=== PATIENT | male | born 1950 | race Caucasian/White ===

== ENCOUNTER → 2019-07-16 05:43 | Outpatient (CLI) | payer OTHER, SELFPAY ==
--- NOTE | 2019-07-16 06:39 | MRI_ITS ---
STUDY: MRI LEFT KNEE REASON FOR EXAM: Anterior pain status post fall, prior surgery. TECHNIQUE: Standardized fat and water weighted pulse sequences were obtained in all 3 orthogonal planes. COMPARISON: None. FINDINGS: There is a partial medial meniscectomy. There is a small complex signal alteration of the posterior horn remnant of the medial meniscus (proton density sagittal images 16-18), either scarring or small recurrent medial meniscal tear. There is arthrosis of the medial femorotibial compartment with marginal osteophytes, chondral thinning (T2 coronal image 15) and a subchondral lesion of the medial femoral condyle (proton density coronal image 18). There is very mild subchondral bone edema of the medial tibial plateau (T2 coronal image 16), a stress phenomenon. Normal medial collateral ligamentous complex (MCL). Normal distal semimembranosus, gracilis and semitendinosus tendons. Normal lateral meniscus. Normal hyaline cartilage of the lateral femorotibial compartment. There are small marginal osteophytes of the lateral femoral condyle. Normal lateral femoral condyle and tibial plateau. Normal proximal tibiofibular articulation. Normal lateral collateral (fibular) ligament. Normal popliteus tendon. Normal biceps femoris tendon. There is intrasubstance mucoid degeneration of the anterior cruciate ligament (T2 sagittal image 15). Normal posterior cruciate ligament (PCL). Normal congruent patellofemoral articulation. There is arthrosis of the patellofemoral compartment with marginal osteophytes and chondral thinning (T2 axial image 10). Normal medial and lateral patellar retinaculum. There is mild distal quadriceps tendinosis (T2 sagittal image 19). There is mild distal patellar tendinosis (T2 sagittal image 19). Normal Hoffa's fat pad. There is a small joint effusion. There is edema in the subcutis adipose space, greatest anteriorly. The otherwise visualized osseous structures are unremarkable. MRI/Lower Ext Joint Only (Routine) IMPRESSION: Partial medial meniscectomy with small signal alteration of the posterior horn remnant of the medial meniscus, either scarring or small recurrent medial meniscal tear. Arthrosis of the medial femorotibial and patellofemoral compartments. Very mild subchondral bone edema of the medial tibial plateau, a stress phenomenon. Mild quadriceps and patellar tendinosis. Small joint effusion. Edema in the subcutis adipose space. Electronically Signed: Bladimir Beebe MD at 13:20 EDT Tel , Service support ,
== END ==
PROVIDERS: Family Provider Internal Medicine; PCP Internal Medicine; Referring Provider Emergency Medicine; Visit Provider Emergency Medicine
DX: S80.02XA Contusion of left knee, initial encounter (principal)
CPT/HCPCS: 73721

== ENCOUNTER 2020-07-12 20:35 | Emergency (ER) | payer MEDICARE, SELFPAY ==
[2020-07-12 20:37] VITALS: BP 147/74; PULSE 99; RESP 15; TEMP 37.6; O2SAT 97; BMI 44.1
--- NOTE | 2020-07-12 22:29 | EKG12_ITS ---
Test Reason : SOB Blood Pressure : / mmHG Vent. Rate : 088 BPM Atrial Rate : 088 BPM P-R Int : 178 ms QRS Dur : 144 ms QT Int : 398 ms P-R-T Axes : 046 019 020 degrees QTc Int : 481 ms Normal sinus rhythm Right bundle branch block Abnormal ECG Confirmed by ARELY JOHNSON, REBECCA ([id number]), publication editor MARIA RYAN ([id number]) on 07/13/2020 9:06:09 AM Referred By: [facility] Confirmed By:REBECCA MCGEE MD
[2020-07-12 22:56] VITALS: BP 140/72; PULSE 87; RESP 18; O2SAT 95
[2020-07-12 22:59] LABS: Absolute Lymphocyte Count 1.18 X10^3/uL (0.83-4.51); Absolute Neutrophil Count 5.9 X10^3/uL (2.0-7.7); Basophil# 0.05 X10^3/uL; Basophil% 0.6 % (0-1); Eosinophil# 0.16 X10^3/uL; Hematocrit 36.2 % (40-54); Hemoglobin 11.2 g/dL (13.0-16.5); Lymphocyte # 1.18 X10^3/ul (4.0); Mean Corp Hgb Conc 30.9 g/dL (32-36); Mean Corpuscular Hgb 25.3 pg (27.0-32.0); Mean Corpuscular Volume 81.9 fL (80-94); Mean Platelet Vol. 9.5 fl (6.2-12.0); Monocyte# 0.57 X10^3/uL; Monocyte% 7.2 % (0-10); NRBC Flagged by Analyzer 0 % (0-5); Neutrophil # 5.88 X10^3/uL (2.7-7.7); Neutrophil % 74.8 % (47-70); Platelet Count 234 K/mm3 (150-450); RBC Distribution Width CV 15.2 % (11.6-14.6); RBC Distribution Width SD 45.6 fl (35.1-43.9); Red Blood Count 4.42 M/mm3 (4.6-6.2); White Blood Count 7.9 K/mm3 (4.4-11.0)
[2020-07-12] MEDS: guaiFENesin 1,200 MG Tablet 1200 MG PO (23:02)
--- NOTE | 2020-07-12 23:15 | RAD_ITS ---
STUDY: X-RAY CHEST REASON FOR EXAM: Male, 69 years old. COUGH AND SOB X 1 DAY TECHNIQUE: Single AP portable view of the chest. COMPARISON: None. FINDINGS: The lungs are clear and expanded. There is no demonstrated pleural abnormality. Normal size heart. Normal mediastinum and leonel. Normal visualized pulmonary arteries. Normal visualized aortic arch and descending thoracic aorta. There are diffuse degenerative changes of the visualized thoracic spine. Normal visualized ribs, clavicles, and shoulders. There is no demonstrated abnormality of the visualized soft tissue structures of the upper abdomen. RAD/Chest 1 View (Portable) IMPRESSION: No definite acute or significant abnormality seen. Electronically Signed: Thomas Chase MD at 23:35 EDT , Service support ,
[2020-07-12 23:34] LABS: Anion Gap 8 (5-15); BUN 11 mg/dL (7-18); BUN/Creat Ratio 7.6 RATIO (10-20); Calcium,Total 9.3 mg/dL (8.5-10.1); Chloride 101 mmol/L (98-107); Creatinine, Serum 1.44 mg/dL (0.70-1.30); EST Glomerular Filtration Rate 52 mL/min (>60); Est Glom Filt Rate - Afr Amer 63 mL/min (>60); Estimated Creatinine Clearance 46.54 ml/min; Glucose 124 mg/dL (74-106); Potassium 3.2 mmol/L (3.5-5.1); Sodium Level 140 mmol/L (136-145)
--- NOTE | 2020-07-13 00:03 | ED.DCSUM_ITS ---
History of Present Illness Chief Complaint: Cough Informant: Patient Onset: Today Current Severity: Mild Maximum Severity: Mild Narrative: Patient presents with right ear pain that started yesterday along with head congestion. Today it moved down into his chest with cough and mild headache. He reports no fever at home but temperature was documented 99.7 here. He states he feels like he has a lot of thick sputum in his chest and is having trouble getting it up and out. - Past Medical History (1) Hypertension Status: Chronic (2) High cholesterol Status: Chronic (3) Diabetes Status: Chronic Past Medical History - Allergies and Home Meds Allergies/Adverse Reactions: Allergies anesthetic Allergy (Uncoded 07/12/20 20:36) Rash Primary Care Physician: Reese Aburto MD [Primary Care Provider] - Prior records reviewed: Yes Lives: Spouse/ Significant Other Smoking Status: Former smoker Review of Systems General: Denies: Chills, Fever Eyes: Denies: Visual changes - bilaterally ENT: Reports: Right ear pain, Sore throat. Denies: Bilateral ear pain Cardiovascular: Reports: Chest pain - Chest heaviness Respiratory: Reports: Cough, Sputum - Rare sputum. Denies: Dyspnea Gastrointestinal: Denies: Abdominal pain, Nausea, Vomiting, Diarrhea Genitourinary: Denies: Dysuria Musculoskeletal: Denies: Extremity Pain Skin: Denies: Rash Neurological: Reports: Headache Hematologic: Denies: Easy bruising, Easy bleeding Allergy: Denies: Uticaria Physical Exam Vital Signs/Narrative: Vital Signs Temp Pulse Resp BP Pulse Ox 07/12/20 22:56 87 18 140/72 H 95 07/12/20 20:37 99.7 F H 99 15 147/74 H 97 Inital Vital Signs reviewed: Yes General: Well nourished, Well developed Head: Normocephalic Eyes: Perrl, EOMI ENT: Moist mucous membranes Neck: Supple Cardiovascular: Regular rate, Regular rhythm Respiratory: No distress, CTA bilaterally Abdomen: Soft, Nontender, Normal bowel sounds Extremities: Nontender, - - 1-2+ edema bilateral lower extremities, symmetric Skin: Normal color Neurological: Alert, Oriented x3, Normal Strength, Normal Sensation Psychological: Normal affect Diagnostic/Tx/Re-eval Impressions Chest X-Ray 07/12/20 23:15 IMPRESSION: No definite acute or significant abnormality seen. Electronically Signed: Thomas Chase MD at 23:35 EDT , Service support , 07/12/20 23:15 Chest 1 View (Portable) [RAD] Stat Laboratory Results 07/12/20 07/12/20 22:05 22:05 WBC 7.9 RBC 4.42 L Hgb 11.2 L Hct 36.2 L MCV 81.9 MCH 25.3 L MCHC 30.9 L RDW Std Deviation 45.6 H RDW Coeff of Viktoria 15.2 H Plt Count 234 MPV 9.5 Immature Gran % (Auto) 0.400 Neut % (Auto) 74.8 H Lymph % (Auto) 15.0 L Day % (Auto) 7.2 Eos % (Auto) 2.0 Baso % (Auto) 0.6 Absolute Neuts (auto) 5.9 Absolute Lymphs (auto) 1.18 Nucleated RBC % 0 Sodium 140 Potassium 3.2 L Chloride 101 Carbon Dioxide 31.0 Anion Gap 8 BUN 11 Creatinine 1.44 H Estim Creat Clear Calc 46.54 Est GFR (MDRD) Af Amer 63 Est GFR (MDRD) Non-Af 52 L BUN/Creatinine Ratio 7.6 L Glucose 124 H Calcium 9.3 Troponin I < 0.015 - EKG Initial EKG Interpretation: Sinus Rhythm - Sinus 88 with a right bundle branch block. No acute ischemia. - Medical Decision Making Patient is observed on awake overnight monitor here with no arrhythmias noted. He is hemodynamically stable. He was given a dose of Mucinex here. On repeat evaluation he is resting comfortably. He states he was able to get some sputum up with his cough. He will be given prescription for Mucinex. I advised him I believe his symptoms are all viral in nature and antibiotics would not be of benefit. Covid test was sent and will be available in 3 to 5 days. ED Disposition - Plan for ED Patient: Disposition: Home or Assisted Living Diagnosis: Viral syndrome Instructions: ED Viral Syndrome Prescriptions: Guaifenesin [Mucinex] 600 mg PO BID PRN #10 tab.er.12h PRN Reason: Congestion Transmission Status: Pending to [id number] Referrals: Reese Aburto MD [Primary Care Provider] - 1 Week if not improving
[2020-07-13 00:37] VITALS: BP 133/67
[2020-07-13 00:41] VITALS: BP 133/67; PULSE 77; RESP 16
== END 2020-07-13 00:41 | disposition home or self-care (01) ==
PROVIDERS: Emergency Provider Emergency Medicine; PCP Internal Medicine
DX: B34.9 Viral infection, unspecified (principal); R05 Cough; J02.9 Acute pharyngitis, unspecified; H92.01 Otalgia, right ear; R51.9 Headache, unspecified; I45.10 Unspecified right bundle-branch block; I10 Essential (primary) hypertension; E11.9 Type 2 diabetes mellitus without complications; E78.00 Pure hypercholesterolemia, unspecified; Z79.84 Long term (current) use of oral hypoglycemic drugs; Z79.899 Other long term (current) drug therapy
CPT/HCPCS: 71045; 80048; 84484; 85025; 87635; 93005; 99285; A4216; U0003

== ENCOUNTER 2020-08-01 16:28 | Emergency (ER) | payer MEDICARE, SELFPAY ==
[2020-08-01 16:29] VITALS: BP 156/25; PULSE 91; RESP 16; TEMP 36.7; O2SAT 97; BMI 45.1
[2020-08-01 16:30] VITALS: BP 156/25; PULSE 91; RESP 16; TEMP 36.7; TEMP 37; O2SAT 97
--- NOTE | 2020-08-01 16:43 | ED.DCSUM_ITS ---
History of Present Illness Informant: Patient Onset: Yesterday Context: Gradual Onset Timing: Continuous Quality: Sharp Location: left leg Current Severity: Severe Maximum Severity: Severe Worsened by: Movement and walking Relieved by: Rest Associated Symptoms: Fever Narrative: 69-year-old male history of hypertension hyperlipidemia type 2 diabetes mellitus presents to ED with pain and swelling in his left leg. Noticed it yesterday. He is concerned for cellulitis. He denies a history of cellulitis. He had a fever 101.7 ?F orally last evening. No nausea or vomiting. No trauma. No weakness or paresthesias. No recent travel or surgery. No history of DVT or PE. No chest pain shortness of breath hemoptysis. No abdominal pain. Prior similar symptoms: No Recent Illness/Hospitalization: No <Tavo Loja - Last Filed: 08/01/20 17:49> <Toan العراقي - Last Filed: 08/01/20 18:13> Chief Complaint: Lower Extremity Injury Past Medical History Prior records reviewed: Yes Past Medical History: - - Hypertension hyperlipidemia depression colonic polyps spinal stenosis morbid obesity BPH anxiety GERD chronic kidney disease gout type 2 diabetes Surgical History: arthroscopy, knee Lives: With Family Smoking Status: Former smoker Alcohol: Occasional Drugs: None <Tavo Loja - Last Filed: 08/01/20 17:49> <Toan العراقي - Last Filed: 08/01/20 18:13> - Allergies and Home Meds Allergies/Adverse Reactions: Allergies anesthetic Allergy (Uncoded 08/01/20 16:31) Rash Primary Care Physician: Reese Aburto MD [Primary Care Provider] - 2 Days Review of Systems All systems negative except as indicated General: Denies: Chills, Fever, Sweats Eyes: Denies: Visual changes - bilaterally, Diplopia ENT: Denies: Rhinorrhea, Sore throat Cardiovascular: Denies: Chest pain, Palpitations Respiratory: Denies: Dyspnea, Cough, Dyspnea on exertion Gastrointestinal: Denies: Abdominal pain, Nausea, Vomiting, Diarrhea, Melena, Hematochezia Genitourinary: Denies: Dysuria, Hematuria, Frequency Musculoskeletal: Reports: Swelling, Extremity Pain. Denies: Back pain Skin: Reports: Wounds. Denies: Rash, Abscess, Abrasions Neurological: Denies: Headache, Weakness, Numbness <Tavo Loja - Last Filed: 08/01/20 17:49> Physical Exam Vital Signs/Narrative: Vital Signs Temp Pulse Resp BP Pulse Ox 08/01/20 16:29 98.0 F 91 16 156/25 H 97 Inital Vital Signs reviewed: Yes General: Well nourished, Well developed, No Acute Distress Head: Normocephalic, Atraumatic Eyes: Perrl, EOMI ENT: Moist mucous membranes, No rhinorrhea Neck: Supple, Nontender Cardiovascular: Regular rate, Regular rhythm, No murmurs Respiratory: No distress, CTA bilaterally, Chest nontender Abdomen: Soft, Nontender, Nondistended, Normal bowel sounds Back: Nontender, Normal Inspection Extremities: - - Patient has cellulitis of his left leg the distal half of his leg that stops at the ankle circumferential. It is tender on palpation red warm to touch and swollen. No lymphatic streaking proximal to that or distal to that area. Normal DP and PT pulse. Compartments soft. Normal AROM Skin: Normal color, No rash Neurological: Alert, Oriented x3, Cranial nerves II-XII grossly intact, Normal Strength, Normal Sensation Psychological: Normal affect, Normal Mood <Tavo Loja - Last Filed: 08/01/20 17:49> Vital Signs/Narrative: Vital Signs Temp Pulse Resp BP Pulse Ox 08/01/20 17:30 98.6 F 91 16 156/25 H 97 08/01/20 16:30 98.6 F 91 16 156/25 H 97 08/01/20 16:29 98.0 F 91 16 156/25 H 97 <Toan العراقي - Last Filed: 08/01/20 18:13> Diagnostic/Tx/Re-eval Laboratory Results 08/01/20 08/01/20 08/01/20 17:05 17:05 17:05 WBC 6.6 RBC 4.09 L Hgb 10.5 L Hct 33.7 L MCV 82.4 MCH 25.7 L MCHC 31.2 L RDW Std Deviation 46.0 H RDW Coeff of Viktoria 15.4 H Plt Count 222 MPV 9.7 Immature Gran % (Auto) 0.200 Neut % (Auto) 67.4 Lymph % (Auto) 22.7 Piatt % (Auto) 7.1 Eos % (Auto) 2.0 Baso % (Auto) 0.6 Absolute Neuts (auto) 4.5 Absolute Lymphs (auto) 1.50 Nucleated RBC % 0 PT 14.2 INR 1.2 Sodium 138 Potassium 3.8 Chloride 103 Carbon Dioxide 29.0 Anion Gap 6 BUN 15 Creatinine 1.55 H Estim Creat Clear Calc 41.73 Est GFR (MDRD) Af Amer 58 L Est GFR (MDRD) Non-Af 48 L BUN/Creatinine Ratio 9.7 L Glucose 180 H Calcium 8.9 Total Bilirubin 0.60 AST 33 ALT 37 Alkaline Phosphatase 87 Total Protein 7.2 Albumin 3.5 Globulin 3.7 Albumin/Globulin Ratio 0.9 - Medical Decision Making Patient has normal stable vital signs. Laboratory work-up was pursued is unremarkable. The patient has no signs of sepsis. He was afebrile here without taking any fever reducing medications. He has not yet failed antibiotic therapy as an outpatient. We will start him on both Bactrim and Keflex. He was given first doses in the emergency department. Patient will be discharged with prescriptions for both Bactrim and Keflex he was advised to have a 48-hour wound check at his primary care physician Dr. Aburto and I gave him return precautions and discussed supportive care as well. All questions answered. He is agreeable with plan. He will be discharged home. <Tavo Loja - Last Filed: 08/01/20 17:49> - Medical Decision Making Dependent history physical was obtained. Patient states when he awoke this morning noted the redness anterior medial distal left leg. He denies itching. He does have history of psoriasis. He denies fever, chills night sweats. He denies polyuria polydipsia. He does have history of diabetes. He denies allergies to antibiotics. He states he had cellulitis in the past. Vital signs noted. Patient has mild cellulitis distal left leg. There is no lymphangitis or lymphadenopathy. There is no fluctuance. Distal pulses are palpable. Blood work was obtained. Patient lactate is elevated due to diabetes, he is on Metformin. White count is normal. Patient was treated with cephalexin and Bactrim for strep and staph coverage for cellulitis left leg. <Toan العراقي - Last Filed: 08/01/20 18:13> ED Disposition <Tavo Loja - Last Filed: 08/01/20 17:49> <Toan العراقي - Last Filed: 08/01/20 18:13> - Plan for ED Patient: Disposition: Home or Assisted Living Diagnosis: Cellulitis of leg without foot, left, Diabetes, High cholesterol, Hypertension, CKD (chronic kidney disease) stage 3, GFR 30-59 ml/min, Hyperglycemia due to type 2 diabetes mellitus, Lactic acidosis due to diabetes mellitus Instructions: ED Cellulitis Prescriptions: Smz/Tmp Ds [Bactrim Ds] 1 tab PO BID #14 tab Transmission Status: Received by [facility] Cephalexin [Keflex] 500 mg PO Q6 #40 cap Transmission Status: Received by [facility] Referrals: Reese Aburto MD [Primary Care Provider] - 2 Days
[2020-08-01 17:30] VITALS: BP 156/25; PULSE 91; RESP 16; TEMP 37; O2SAT 97
[2020-08-01 17:31] LABS: Absolute Neutrophil Count 4.5 X10^3/uL (2.0-7.7); Basophil# 0.04 X10^3/uL; Basophil% 0.6 % (0-1); Eosinophil# 0.13 X10^3/uL; Hematocrit 33.7 % (40-54); Hemoglobin 10.5 g/dL (13.0-16.5); Lymphocyte % 22.7 % (19-41); Mean Corp Hgb Conc 31.2 g/dL (32-36); Mean Corpuscular Hgb 25.7 pg (27.0-32.0); Mean Corpuscular Volume 82.4 fL (80-94); Mean Platelet Vol. 9.7 fl (6.2-12.0); Monocyte# 0.47 X10^3/uL; Monocyte% 7.1 % (0-10); NRBC Flagged by Analyzer 0 % (0-5); Neutrophil # 4.47 X10^3/uL (2.7-7.7); Neutrophil % 67.4 % (47-70); Platelet Count 222 K/mm3 (150-450); RBC Distribution Width CV 15.4 % (11.6-14.6); Red Blood Count 4.09 M/mm3 (4.6-6.2); White Blood Count 6.6 K/mm3 (4.4-11.0)
[2020-08-01 17:35] LABS: International Normalized Ratio 1.2; Prothrombin Time (Protime)PT. 14.2 SECONDS (11.7-14.9)
[2020-08-01 17:43] LABS: ALB/GLOB Ratio 0.9 RATIO (0.9-2.4); AST(SGOT) 33 U/L (15-37); Alanine Aminotransfer ALT/SGPT 37 U/L (16-61); Albumin, Serum 3.5 g/dL (3.2-5.0); Alkaline Phosphatase 87 U/L (45-117); Anion Gap 6 (5-15); BUN 15 mg/dL (7-18); BUN/Creat Ratio 9.7 RATIO (10-20); Calcium,Total 8.9 mg/dL (8.5-10.1); Chloride 103 mmol/L (98-107); Creatinine, Serum 1.55 mg/dL (0.70-1.30); EST Glomerular Filtration Rate 48 mL/min (>60); Est Glom Filt Rate - Afr Amer 58 mL/min (>60); Estimated Creatinine Clearance 41.73 ml/min; Globulin 3.7 g/dL (2.2-4.2); Glucose 180 mg/dL (74-106); Potassium 3.8 mmol/L (3.5-5.1); Protein, Total 7.2 g/dL (6.4-8.2); Sodium Level 138 mmol/L (136-145)
[2020-08-01 17:58] LABS: Lactic Acid 2.1 mmol/L (0.4-1.9)
[2020-08-01] MEDS: Cephalexin 250 MG Capsule 500 MG PO (18:23)
[2020-08-01] MEDS: Smz/Tmp Ds Tablet 1 TABLET PO (18:23)
[2020-08-01 21:16] LABS: Reflex Lactate? Y
== END 2020-08-01 18:27 | disposition home or self-care (01) ==
PROVIDERS: Emergency Provider Physician Assistant Medical; PCP Internal Medicine
DX: E11.628 Type 2 diabetes mellitus with other skin complications (principal); L03.116 Cellulitis of left lower limb; E11.22 Type 2 diabetes mellitus with diabetic chronic kidney disease; I12.9 Hypertensive chronic kidney disease with stage 1 through stage 4 chronic kidney disease, or unspecified chronic kidney disease; N18.30 Chronic kidney disease, stage 3 unspecified; E11.65 Type 2 diabetes mellitus with hyperglycemia; E78.00 Pure hypercholesterolemia, unspecified; E87.2 Acidosis; E78.5 Hyperlipidemia, unspecified; F32.9 Major depressive disorder, single episode, unspecified; M48.00 Spinal stenosis, site unspecified; E66.01 Morbid (severe) obesity due to excess calories; N40.0 Benign prostatic hyperplasia without lower urinary tract symptoms; K21.9 Gastro-esophageal reflux disease without esophagitis; F41.9 Anxiety disorder, unspecified; Z86.010 Personal history of colon polyps; Z79.84 Long term (current) use of oral hypoglycemic drugs; Z79.899 Other long term (current) drug therapy; Z87.891 Personal history of nicotine dependence
CPT/HCPCS: 80053; 83605; 85025; 85610; 99284; A4216

== ENCOUNTER 2021-04-04 15:26 | Emergency (ER) | payer MEDICARE, SELFPAY ==
[2021-04-04 15:27] VITALS: BP 146/69; PULSE 98; RESP 14; TEMP 36.4; O2SAT 97; BMI 41.3
--- NOTE | 2021-04-04 16:26 | EDS_ITS ---
HPI History of Present Illness Chief Complaint: Lower Extremity Injury Informant: patient Onset/Context/Timing Onset: Days (3) Context: Sudden Onset Timing: Continuous Quality: Cramping Location: Left thigh and left knee Worsened by: Sitting, certain movements Relieved by: Nothing Narrative Narrative: Patient presents with left thigh and knee pain that began 3 days ago. Patient states he slipped and fell and did a split. Patient states he felt pain in his left hamstring and left knee at that time. Patient states the pain is been constant. Patient describes his pain as cramping. Patient states pain is worse with sitting and certain movements. Patient admits to some intermittent tingling in his left foot. Patient states he had a left total knee replacement and is concerned that he has damaged the prosthesis. [facility] Medical History High cholesterol HTN (hypertension) Home Medications amlodipine 10 mg PO DAILY 07/12/20 [History Last Taken Unknown] atorvastatin 40 mg PO DAILY 07/12/20 [History Last Taken Unknown] doxazosin 4 mg PO QHS 07/12/20 [History Last Taken Unknown] lisinopril-hydrochlorothiazide 2 ea PO DAILY 07/12/20 [History Last Taken Unknown] metformin 500 mg PO DAILY 07/12/20 [History Last Taken Unknown] omeprazole 20 mg PO DAILY 07/12/20 [History Last Taken Unknown] guaifenesin 600 mg PO BID PRN #10 tab.er.12h 07/13/20 [Rx Last Taken Unknown] cephalexin 500 mg PO Q6 #40 cap 08/01/20 [Rx Last Taken Unknown] sulfamethoxazole-trimethoprim 1 tab PO BID #14 tab 08/01/20 [Rx Last Taken Unknown] Allergy/AdvReac Type Severity Reaction Status Date / Time anesthetic Allergy Rash Uncoded 04/04/21 15:27 Surgical History H/O left knee surgery Social History Smoking Status: Never smoker ROS ROS ED Constitutional Constitutional ED: Denies chills or fever(s) Eyes Eyes: Denies blurry vision or change in vision ENT ENT ED: Denies rhinorrhea or sore throat Cardiovascular Cardiovascular: Denies chest pain or palpitations Respiratory/Chest Respiratory/Chest: Denies cough or dyspnea Gastrointestinal Gastrointestinal: Denies nausea or vomiting Genitourinary Genitourinary ED: Denies dysuria or hematuria Musculoskeletal Musculoskeletal: Reports back pain; Denies neck pain Integumentary Denies abscess or rash Neurologic Neurologic: Denies headache(s) or weakness Allergic/Immunologic Allergic/Immunologic ED: Denies mouth swelling or urticaria EXAM Physical Exam Const Vital Signs: 04/04/21 15:27 Temperature 97.6 F L Temperature Source Temporal Pulse Rate 98 Respiratory Rate 14 Blood Pressure 146/69 H Blood Pressure Mean 94 Pulse Ox 97 Oxygen Delivery Method Room Air Positive well nourished, well developed and obese General Appearance ED: well developed Nutritional Appearance: obese HEENT Reports moist mucous membranes Neck supple and no JVD Extremity Extremity Narrative: There is some mild tenderness over the superior aspect of the left knee. There is no bony crepitance or step-off. There is no edema or ecchymosis. Range of motion was limited to approximately 30 degrees of flexion secondary to pain. Extensor mechanism is intact. There is no effusion. There is mild tenderness posteriorly. There is tenderness over the posterior aspect of the left thigh along the hamstring muscles. There is no deformity noted. Sensation was intact to light touch bilaterally in the lower extremities. Strength is 5/5 bilaterally. There are good pedal pulses bilaterally. Neuro oriented x3, CN's II-XII intact bilaterally and no sensory deficits noted Sensorium / Orientation: alert Motor Exam: strength 5/5 throughout Psych mental status grossly normal MDM MDM MDM Narrative Medical decision making narrative: X-rays of the left knee were obtained. There are 4 views. On my interpretation, there is no acute fracture. There is no dislocation. There is some mild soft tissue swelling. Radiologist also interpreted the x-rays and agrees. Patient was advised that the knee prosthesis is intact. Patient was instructed to use ice to his knee and thigh. Patient was instructed to take Tylenol or ibuprofen as needed for pain. Patient was instructed to follow-up with his primary care physician in 5 to 7 days. Patient understood and was agreeable with the plan. All questions were answered. Radiography Diagnostic Testing: Radiology Impression Knee X-Ray 04/04/21 16:38 IMPRESSION: Stable appearance to knee prosthesis without evidence for acute fracture Electronically Signed: Zi Doan MD at 17:07 EDT , Service support , Discharge Plan Triage Chief Complaint: Lower Extremity Injury ED Provider: Ralph Ozuna Dx/Rx/DC Orders Clinical Impression: Strain of left hamstring muscle Instructions: ED Muscle Strain, Extremity Prescriptions: No Action atorvastatin 40 MG tablet 40 mg PO DAILY RF: 0 amlodipine 10 MG tablet 10 mg PO DAILY RF: 0 omeprazole 20 MG capsule 20 mg PO DAILY RF: 0 doxazosin 4 MG tablet 4 mg PO QHS RF: 0 metformin 500 MG tablet 500 mg PO DAILY RF: 0 lisinopril-hydrochlorothiazide 1 EACH tablet 2 ea PO DAILY RF: 0 guaifenesin 600 MG tablet extended release 12hr 600 mg PO BID PRN (Reason: Congestion) Qty: 10 RF: 0 sulfamethoxazole-trimethoprim 1 TABLET tablet 1 tab PO BID Qty: 14 RF: 0 cephalexin 500 MG capsule 500 mg PO Q6 Qty: 40 RF: 0 Primary Care Provider: Reese Aburto Referrals: Reese Aburto MD [Primary Care Provider] - 5-7 Days Disposition Disposition: Home, Self Care
--- NOTE | 2021-04-04 16:38 | RAD_ITS ---
STUDY: X-RAY - LEFT KNEE REASON FOR EXAM: Male, 70 years old. Injury/Pain TECHNIQUE: 4 view(s) of the knee. COMPARISON: None. FINDINGS: Stable appearance to knee prosthesis. No acute fracture or dislocation. Mild prepatellar soft tissue swelling. RAD/Knee 4 or More Views IMPRESSION: Stable appearance to knee prosthesis without evidence for acute fracture Electronically Signed: Zi Doan MD at 17:07 EDT , Service support ,
[2021-04-04 17:34] VITALS: RESP 16
== END 2021-04-04 17:39 | disposition home or self-care (01) ==
PROVIDERS: Emergency Provider Emergency Medicine; PCP Internal Medicine
DX: S76.312A Strain of muscle, fascia and tendon of the posterior muscle group at thigh level, left thigh, initial encounter (principal); R20.2 Paresthesia of skin; W01.0XXA Fall on same level from slipping, tripping and stumbling without subsequent striking against object, initial encounter; Y93.9 Activity, unspecified; Y92.9 Unspecified place or not applicable; E66.9 Obesity, unspecified; Z68.41 Body mass index [BMI] 40.0-44.9, adult; I10 Essential (primary) hypertension; E78.00 Pure hypercholesterolemia, unspecified; Z96.652 Presence of left artificial knee joint; Z79.84 Long term (current) use of oral hypoglycemic drugs; Z79.899 Other long term (current) drug therapy
CPT/HCPCS: 73564; 99282

== ENCOUNTER 2022-03-15 16:34 | Emergency (ER) | payer MEDICARE, SELFPAY ==
[2022-03-15 16:36] VITALS: BP 118/55; PULSE 74; RESP 14; TEMP 36.8; O2SAT 95; BMI 44.1
--- NOTE | 2022-03-15 16:52 | EX.ED.UPPERE ---
HPI History of Present Illness Chief Complaint: Upper Extremity Injury Informant: patient and spouse/S.O. Narrative Narrative: 71-year-old male history of diabetes hypertension high cholesterol and gout presents to the emergency room with swelling pain and redness of the left elbow. He states that he had a cut on the left elbow Sunday he woke up Sunday he had pain. He is progressively gotten more swollen and more red. No fevers. He was seen at an urgent care and was sent to the emergency room out of concern for DVT. [facility] Medical History High cholesterol HTN (hypertension) Home Medications amlodipine 10 mg tablet 10 mg PO DAILY 07/12/20 [History Last Taken Unknown] atorvastatin 40 mg tablet 40 mg PO DAILY 07/12/20 [History Last Taken Unknown] doxazosin 4 mg tablet 4 mg PO QHS 07/12/20 [History Last Taken Unknown] lisinopril 20 mg-hydrochlorothiazide 12.5 mg tablet 2 ea PO DAILY 07/12/20 [History Last Taken Unknown] metformin 500 mg tablet 500 mg PO DAILY 07/12/20 [History Last Taken Unknown] omeprazole 20 mg capsule,delayed release 20 mg PO DAILY 07/12/20 [History Last Taken Unknown] guaifenesin 600 mg tablet, extended release 12 hr 600 mg PO BID PRN Congestion ##10 07/13/20 [Rx Last Taken Unknown] cephalexin 500 mg capsule 500 mg PO Q6 #40 caps 08/01/20 [Rx Last Taken Unknown] sulfamethoxazole 800 mg-trimethoprim 160 mg tablet 1 tab PO BID #14 tabs 08/01/20 [Rx Last Taken Unknown] cephalexin 500 mg capsule 500 mg PO Q6 #40 CAPSULES 03/15/22 [Rx Last Taken Unknown] ibuprofen 600 mg tablet 600 mg PO Q6H 7 days #28 TABLETS 03/15/22 [Rx Last Taken Unknown] Allergy/AdvReac Type Severity Reaction Status Date / Time anesthetic Allergy Rash Uncoded 03/15/22 16:46 Surgical History H/O left knee surgery Social History (Updated 03/15/22 @ 16:[address] Scooby Portillo DO) current gender identity: male Smoking Status: Never smoker ROS ROS ED Constitutional Constitutional ED: Denies chills or weight loss Eyes Eyes: Denies change in vision or diplopia ENT ENT ED: Denies ear pain, rhinorrhea or sore throat Cardiovascular Cardiovascular: Denies chest pain, orthopnea, palpitations or racing heartbeat Respiratory/Chest Respiratory/Chest: Denies cough, dyspnea or orthopnea Gastrointestinal Gastrointestinal: Denies abdominal pain, diarrhea, nausea or vomiting Genitourinary Genitourinary ED: Denies dysuria, hematuria or urinary frequency Musculoskeletal Musculoskeletal: Reports other Details: See history of present illness ; Denies arthralgias or myalgias Integumentary Reports rash; Denies abscess Neurologic Neurologic: Denies headache(s) or weakness Psychiatric Psychiatric: Denies anxiety, depression, suicidal ideation or suicidal thoughts Endocrine Endocrinology: Denies polydipsia, polyphagia or polyuria Allergic/Immunologic Allergic/Immunologic ED: Denies mouth swelling, tongue swelling or urticaria EXAM Physical Exam Const Vital Signs: 03/15/22 16:36 Temperature 98.2 F Temperature Source Temporal Pulse Rate 74 Respiratory Rate 14 Blood Pressure 118/55 L Blood Pressure Mean 76 Pulse Ox 95 Oxygen Delivery Method Room Air Positive well nourished, well developed and obese General Appearance ED: well developed Nutritional Appearance: obese HEENT Reports normocephalic, head/scalp atraumatic and moist mucous membranes Eyes PERRL and EOMs intact bilaterally Neck no lymphadenopathy, supple and no JVD Resp normal respiratory effort and clear to auscultation bilaterally Cardio regular rate, regular rhythm and no murmurs GI normal to inspection, nondistended, normoactive bowel sounds and non-tender Palpation: soft Back/Spine no CVA tenderness and normal ROM Extremity Extremity Narrative: There is swelling diffusely of the left elbow. There is erythema over the medial aspect of the joint. Neurovascular he is intact. His ring still fits him appropriately on the left ring finger. No hand swelling. General Extremety ED: Negative for edema General Extremity: Negative for edema Neuro oriented x3 and CN's II-XII intact bilaterally Sensorium / Orientation: alert Motor Exam: strength 5/5 throughout Psych mental status grossly normal Mood & Affect: Negative for depressed or tearful Skin no rashes or lesions noted and no wounds MDM MDM MDM Narrative Medical decision making narrative: Patient's white count is 8. CRP and sed rate are elevated. Uric acid is elevated normal creatinine. My interpretation of the elbow x-ray is no effusion. Patient's bursa is not necessarily swollen. I do not see an effusion on the x-ray. I am going to start him on Keflex for the cellulitis medially on the elbow. He can return tomorrow for duplex ultrasound of the arm. We will start him on anti-inflammatories just in case there would be a component of gout. He is to return here or follow-up with primary care if any concerns. He was advised he may need to see orthopedics. Radiography Diagnostic Testing: Radiology Impression Elbow X-Ray 03/15/22 17:15 IMPRESSION: Negative left elbow. Electronically Signed: Scott Arguello MD at 17:50 EDT Reading Location ID and State: [facility] / [place] , Service support , Discharge Plan Triage Chief Complaint: Upper Extremity Injury ED Provider: Scooby Portillo Dx/Rx/DC Orders Clinical Impression: Cellulitis, Left elbow pain Instructions: ED Cellulitis, ED Gout Prescriptions: New cephalexin [cephalexin] 500 mg capsule 500 mg PO Q6 Qty: 40 0RF ibuprofen 600 mg tablet 600 mg PO Q6H 7 Days Qty: 28 0RF Rx Instructions: Take with Food No Action atorvastatin 40 MG tablet 40 mg PO DAILY Label Comments: TAKE 1 TABLET BY MOUTH ONCE DAILY FOR CHOLESTEROL amlodipine 10 MG tablet 10 mg PO DAILY omeprazole 20 MG capsule 20 mg PO DAILY doxazosin 4 MG tablet 4 mg PO QHS metformin 500 MG tablet 500 mg PO DAILY lisinopril-hydrochlorothiazide 1 EACH tablet 2 ea PO DAILY guaifenesin 600 MG tablet extended release 12hr 600 mg PO BID PRN (Reason: Congestion) Qty: 10 0RF sulfamethoxazole-trimethoprim 1 TABLET tablet 1 tab PO BID Qty: 14 0RF cephalexin 500 MG capsule 500 mg PO Q6 Qty: 40 0RF Primary Care Provider: Reese Aburto Referrals: Reese Aburto MD [Primary Care Provider] - 3-5 Days if not improving Disposition Disposition: Home, Self Care
--- NOTE | 2022-03-15 17:08 | ED.RN ---
This RN entered patients room to start an IV and to obtain bloodwork. Patient daughter now at bedside. She was not prior to patient being examined by doctor. Patients daughter upset and demanding a D-Dimer to be drawn for a concern of blood clot. Dr. Portillo notified by this RN of daughters requests. Dr. Portillo states he is not concerned for blood clot at this time. Patients daughter nofitied of doctors decision and upset. no further questions at this time.
[2022-03-15 17:14] LABS: Absolute Lymphocyte Count 1.44 X10^3/uL (0.83-4.51); Absolute Neutrophil Count 6.1 X10^3/uL (2.0-7.7); Basophil# 0.02 X10^3/uL; Basophil% 0.2 % (0-1); Eosinophils% 1.2 % (0-5); Hematocrit 33.3 % (40-54); Hemoglobin 10.4 g/dL (13.0-16.5); Lymphocyte # 1.44 X10^3/ul (0.83-4.51); Lymphocyte % 17.5 % (19-41); Mean Corp Hgb Conc 31.2 g/dL (32-36); Mean Corpuscular Hgb 25.4 pg (27.0-32.0); Mean Corpuscular Volume 81.2 fL (80-94); Mean Platelet Vol. 9.5 fl (6.2-12.0); Monocyte# 0.57 X10^3/uL; Monocyte% 6.9 % (0-10); NRBC Flagged by Analyzer 0 % (0-5); Neutrophil # 6.08 X10^3/uL (2.7-7.7); Neutrophil % 73.7 % (47-70); Platelet Count 243 K/mm3 (150-450); RBC Distribution Width CV 15.6 % (11.6-14.6); RBC Distribution Width SD 45.1 fl (35.1-43.9); White Blood Count 8.3 K/mm3 (4.4-11.0)
--- NOTE | 2022-03-15 17:15 | RAD_ITS ---
EXAM: XR LEFT ELBOW COMPLETE, 3 OR MORE VIEWS CLINICAL INDICATION: swelling TECHNIQUE: Frontal, lateral and oblique views of the left elbow. This report was created using [employer] report generation technology. COMPARISON: None. FINDINGS: BONES/JOINTS: Unremarkable. There is no displacement of the anterior or posterior fat pads. No acute fracture. No subluxation. Normal alignment. Preservation of the joint space. No destructive or sclerotic lesions. SOFT TISSUES: Unremarkable. No soft tissue swelling or gas. No radiopaque foreign body. RAD/Elbow min 3 Views IMPRESSION: Negative left elbow. Electronically Signed: Scott Arguello MD at 17:50 EDT ,
[2022-03-15 17:22] LABS: Erythrocyte Sedimentation Rate 41 mm/hr (0-20)
[2022-03-15 17:26] LABS: Anion Gap 7 (5-15); BUN 19 mg/dL (7-18); BUN/Creat Ratio 13.1 RATIO (10-20); Chloride 105 mmol/L (98-107); Creatinine, Serum 1.45 mg/dL (0.70-1.30); EST Glomerular Filtration Rate 51 mL/min (>60); Est Glom Filt Rate - Afr Amer 62 mL/min (>60); Estimated Creatinine Clearance 44.95 ml/min; Glucose 76 mg/dL (74-106); Potassium 3.3 mmol/L (3.5-5.1); Sodium Level 138 mmol/L (136-145); Uric Acid 8.5 mg/dL (3.5-7.2)
== END 2022-03-15 19:31 | disposition home or self-care (01) ==
PROVIDERS: Emergency Provider Emergency Medicine; PCP Internal Medicine; Visit Provider Emergency Medicine
DX: L03.114 Cellulitis of left upper limb (principal); I10 Essential (primary) hypertension; E78.00 Pure hypercholesterolemia, unspecified; R79.82 Elevated C-reactive protein (CRP); Z79.899 Other long term (current) drug therapy
CPT/HCPCS: 73080; 80048; 84550; 85025; 85652; 86140; 99283; A4216

== ENCOUNTER 2022-03-17 06:02 | Emergency (ER) | payer MEDICARE, SELFPAY ==
[2022-03-17 06:05] VITALS: BP 138/62; PULSE 71; RESP 18; TEMP 36.8; O2SAT 96; BMI 43.9
[2022-03-17 06:08] VITALS: BP 138/62; PULSE 73; RESP 18; TEMP 36.8; O2SAT 95
--- NOTE | 2022-03-17 06:29 | VDUE_ITS ---
Reason For Study: LEFT ARM SWELLING Right Proximal Left Proximal Right subclavian vein is spontaneous, widely Left jugular vein is spontaneous, widely patent, phasic, with no intraluminal patent, phasic, with no intraluminal echogenicity noted. echogenicity noted. Left subclavian vein is spontaneous, widely patent, phasic, with no intraluminal echogenicity noted. Left Arm Left axillary vein is spontaneous, patent, phasic, competent, compressible and demonstrates augmentation. Left brachial vein is compressible. Left cephalic vein is compressible. Left basilic vein is compressible. Left Lower Arm Left radial vein is compressible. Left ulnar vein is compressible. Patient Safety Preliminary report given to ER Doctors. VL/Venous Duplex US, Unilateral Interpretation Summary No evidence for acute deep venous thrombosis[left] upper extremity with patent and compressible cephalic and basilic veins. Normal flow patterns right subclavian vein Ordering Physician: Yosi Ferraro Referring Physician: Reese Aburto M.D. Performed By: Junaid Strickland ?
--- NOTE | 2022-03-17 06:29 | RAD_ITS ---
STUDY: X-RAY - LEFT ELBOW REASON FOR EXAM: Male, 71 years old. pain TECHNIQUE: 3 view(s) of the left elbow. COMPARISON: Previous elbow radiographs of 03/15/2022. FINDINGS: No acute fracture or dislocation. The joint spaces are preserved. Hypertrophic spurring arises upon the medial epicondyle. Amorphous soft tissue is noted adjacent to the radial tuberosity at the insertion of the biceps tendon, indicating calcific tendinitis of the distal biceps. Fat pad is not displaced. RAD/Elbow min 3 Views IMPRESSION: No acute fracture or dislocation. Findings of calcific tendinitis within the biceps tendon attaches to the radial tuberosity. Hypertrophic spurring again seen arising upon the medial epicondyle. Electronically Signed: Waqas Lee MD at 8:00 EDT ,
[2022-03-17] MEDS: Ketorolac 15 MG/ML Vial IV (06:52)
[2022-03-17 06:59] LABS: Absolute Lymphocyte Count 1.27 X10^3/uL (0.83-4.51); Absolute Neutrophil Count 4.9 X10^3/uL (2.0-7.7); Basophil# 0.03 X10^3/uL; Basophil% 0.4 % (0-1); Eosinophil# 0.16 X10^3/uL; Eosinophils% 2.3 % (0-5); Hematocrit 32.3 % (40-54); Lymphocyte # 1.27 X10^3/ul (0.83-4.51); Lymphocyte % 18.6 % (19-41); Mean Corpuscular Hgb 25.6 pg (27.0-32.0); Mean Corpuscular Volume 82.6 fL (80-94); Mean Platelet Vol. 9.5 fl (6.2-12.0); Monocyte# 0.39 X10^3/uL; Monocyte% 5.7 % (0-10); NRBC Flagged by Analyzer 0 % (0-5); Neutrophil # 4.93 X10^3/uL (2.7-7.7); Neutrophil % 72.6 % (47-70); Platelet Count 238 K/mm3 (150-450); RBC Distribution Width CV 15.8 % (11.6-14.6); RBC Distribution Width SD 47.6 fl (35.1-43.9); Red Blood Count 3.91 M/mm3 (4.6-6.2); White Blood Count 6.8 K/mm3 (4.4-11.0)
[2022-03-17 07:13] LABS: Anion Gap 8 (5-15); BUN 24 mg/dL (7-18); BUN/Creat Ratio 13.7 RATIO (10-20); Calcium,Total 8.8 mg/dL (8.5-10.1); Chloride 107 mmol/L (98-107); Creatinine, Serum 1.75 mg/dL (0.70-1.30); EST Glomerular Filtration Rate 41 mL/min (>60); Est Glom Filt Rate - Afr Amer 50 mL/min (>60); Estimated Creatinine Clearance 37.25 ml/min; Glucose 180 mg/dL (74-106); Sodium Level 139 mmol/L (136-145); Uric Acid 8.6 mg/dL (3.5-7.2)
[2022-03-17 07:27] LABS: Lactic Acid 1.6 mmol/L (0.4-1.9)
--- NOTE | 2022-03-17 08:32 | EX.ED.DYSGE1 ---
HPI History of Present Illness Chief Complaint: Cellulitis Narrative Narrative: Patient is a 71-year-old male with past medical history of hypertension hyperlipidemia and diabetes currently on metformin. He was seen 2 days ago for left elbow redness and swelling and at that time placed on Keflex. He has been taking that for approximately 2 days but states he has noticed some increased swelling and redness and therefore returns to the hospital for repeat evaluation. He denies any fevers present with this [facility] Medical History High cholesterol HTN (hypertension) Hx of gout Home Medications amlodipine 10 mg tablet 10 mg PO DAILY 07/12/20 [History Last Taken Unknown] atorvastatin 40 mg tablet 40 mg PO DAILY 07/12/20 [History Last Taken Unknown] doxazosin 4 mg tablet 4 mg PO QHS 07/12/20 [History Last Taken Unknown] lisinopril 20 mg-hydrochlorothiazide 12.5 mg tablet 2 ea PO DAILY 07/12/20 [History Last Taken Unknown] metformin 500 mg tablet 500 mg PO DAILY 07/12/20 [History Last Taken Unknown] omeprazole 20 mg capsule,delayed release 20 mg PO DAILY 07/12/20 [History Last Taken Unknown] guaifenesin 600 mg tablet, extended release 12 hr 600 mg PO BID PRN Congestion ##10 07/13/20 [Rx Last Taken Unknown] cephalexin 500 mg capsule 500 mg PO Q6 #40 caps 08/01/20 [Rx Last Taken Unknown] ibuprofen 600 mg tablet 600 mg PO Q6H 7 days #28 TABLETS 03/15/22 [Rx Last Taken Unknown] sulfamethoxazole 800 mg-trimethoprim 160 mg tablet (Bactrim DS) 1 tab PO BID 10 days #20 tabs 03/17/22 [Rx Last Taken Unknown] Allergy/AdvReac Type Severity Reaction Status Date / Time anesthetic Allergy Rash Uncoded 03/17/22 06:05 Surgical History H/O left knee surgery Social History (Updated 03/15/22 @ 16:[address] Scooby Portillo DO) Smoking Status: Never smoker ROS ROS ED Constitutional Constitutional ED: Denies chills or fever(s) ENT ENT ED: Denies sore throat Cardiovascular Cardiovascular: Denies chest pain Respiratory/Chest Respiratory/Chest: Denies cough or dyspnea Gastrointestinal Gastrointestinal: Denies abdominal pain, diarrhea, nausea or vomiting Genitourinary Genitourinary ED: Denies dysuria Musculoskeletal Musculoskeletal: Reports other Details: Positive left elbow pain ; Denies myalgias Integumentary Reports other Details: Positive left elbow redness and swelling ; Denies rash Neurologic Neurologic: Denies headache(s) Hematologic/Lymphatic Hematologic/Lymphatic: Denies easy bleeding or easy bruising EXAM Physical Exam Const Vital Signs: 03/17/22 06:05 03/17/22 06:08 Temperature 98.2 F 98.2 F Temperature Source Temporal Temporal Pulse Rate 71 73 Respiratory Rate 18 18 Blood Pressure 138/62 H 138/62 H Blood Pressure Mean 87 87 Pulse Ox 96 95 Oxygen Delivery Method Room Air Room Air Positive well nourished, well developed and obese General Appearance ED: well developed Nutritional Appearance: obese Eyes PERRL and EOMs intact bilaterally Neck supple Resp normal respiratory effort and clear to auscultation bilaterally Cardio regular rate and regular rhythm Extremity Extremity Narrative: Left upper extremity is neurovascularly intact. There is diffuse soft tissue swelling to the left elbow and antecubital space. There is mild redness and warmth associated with this. There is faint streaking down the forearm. No obvious abscess formation noted. No obvious olecranon bursitis. Active range of motion is decreased secondary to pain but still present going against septic joint. Compartments are still compressible going against compartment syndrome. Remainder of the exam is normal Neuro oriented x3 and CN's II-XII intact bilaterally Sensorium / Orientation: alert Psych mental status grossly normal Skin Skin Narrative: Soft tissue changes to the right elbow region as documented above MDM MDM MDM Narrative Medical decision making narrative: Patient presented to the ER with stable vitals and is afebrile. He is only been on antibiotics for approximately 2 days but as he has had mild increase in swelling or redness I did elect to repeat laboratory studies as well as imaging studies. Patient's white blood cell count has decreased from the previous day down to 6.8 and his C-reactive protein is decreased from 104 down to 78. His lactic acid is also normal. X-ray reveals no obvious joint effusion foreign body or signs of osteomyelitis. Ultrasound of the upper extremity also confirms no DVT. Therefore at this time as he has had improvement of his laboratory studies and his vitals are stable I do not feel he warrants admission as after only 2 days I cannot consider him failure of outpatient therapy and has had improvement of his laboratory studies. Blood cultures will be obtained and patient will have Bactrim added to his antibiotic regimen. He agrees to return if he has persistent worsening of symptoms such as increased redness swelling or fever or no improvement despite the addition of the new antibiotic Lab Data Attestation: I reviewed the patient's lab results. Labs: Laboratory Results - last 24 hr 03/17/22 03/17/22 03/17/22 06:43 06:43 06:43 WBC 6.8 RBC 3.91 L Hgb 10.0 L Hct 32.3 L MCV 82.6 MCH 25.6 L MCHC 31.0 L RDW Std Deviation 47.6 H RDW Coeff of Viktoria 15.8 H Plt Count 238 MPV 9.5 Immature Gran % (Auto) 0.400 Neut % (Auto) 72.6 H Lymph % (Auto) 18.6 L Emmet % (Auto) 5.7 Eos % (Auto) 2.3 Baso % (Auto) 0.4 Absolute Neuts (auto) 4.9 Absolute Lymphs (auto) 1.27 Nucleated RBC % 0 Sodium 139 Potassium 3.0 L Chloride 107 Carbon Dioxide 24.0 Anion Gap 8 BUN 24 H Creatinine 1.75 H Estim Creat Clear Calc 37.25 Est GFR (MDRD) Af Amer 50 L Est GFR (MDRD) Non-Af 41 L BUN/Creatinine Ratio 13.7 Glucose 180 H Lactic Acid 1.6 Uric Acid 8.6 H Calcium 8.8 C-React Prot Ext Range 78.70 H Radiography Diagnostic Testing: Clinical Impression(s) from Imaging Studies Elbow X-Ray 03/17/22 06:29 IMPRESSION: No acute fracture or dislocation. Findings of calcific tendinitis within the biceps tendon attaches to the radial tuberosity. Hypertrophic spurring again seen arising upon the medial epicondyle. Electronically Signed: Waqas Lee MD at 8:00 EDT , X-ray of the left elbow as interpreted by the emergency medicine physician reveals no acute fracture dislocation or signs of osteomyelitis Discharge Plan Triage Chief Complaint: Cellulitis ED Provider: Yosi Ferraro Dx/Rx/DC Orders Clinical Impression: Cellulitis of left elbow, Diabetes Instructions: ED Cellulitis Prescriptions: New sulfamethoxazole-trimethoprim [Bactrim DS] 800-160 mg tablet 1 tab PO BID 10 Days Qty: 20 0RF No Action atorvastatin 40 MG tablet 40 mg PO DAILY Label Comments: TAKE 1 TABLET BY MOUTH ONCE DAILY FOR CHOLESTEROL amlodipine 10 MG tablet 10 mg PO DAILY omeprazole 20 MG capsule 20 mg PO DAILY doxazosin 4 MG tablet 4 mg PO QHS metformin 500 MG tablet 500 mg PO DAILY lisinopril-hydrochlorothiazide 1 EACH tablet 2 ea PO DAILY guaifenesin 600 MG tablet extended release 12hr 600 mg PO BID PRN (Reason: Congestion) Qty: 10 0RF cephalexin 500 MG capsule 500 mg PO Q6 Qty: 40 0RF ibuprofen 600 mg tablet 600 mg PO Q6H 7 Days Qty: 28 0RF Rx Instructions: Take with Food Primary Care Provider: Reese Aburto Referrals: Reese Aburto MD [Primary Care Provider] - Activity Restrictions/Additional Instructions: Please continue the Keflex/cephalexin you were given at your initial visit but add the Bactrim as directed for improved infection control. If you are not noticing improvement of the redness and swelling over the next 2 days redeveloped a fever over 100.4 please return to the ER for repeat evaluation Disposition Disposition: Home, Self Care
[2022-03-17 09:02] VITALS: BP 140/64; PULSE 71; RESP 18; TEMP 36.7; O2SAT 96
== END 2022-03-17 09:46 | disposition home or self-care (01) ==
PROVIDERS: Emergency Provider Emergency Medicine; PCP Internal Medicine; Visit Provider Emergency Medicine
DX: L03.114 Cellulitis of left upper limb (principal); Z68.41 Body mass index [BMI] 40.0-44.9, adult; E11.9 Type 2 diabetes mellitus without complications; I10 Essential (primary) hypertension; Z79.84 Long term (current) use of oral hypoglycemic drugs; E78.00 Pure hypercholesterolemia, unspecified; Z79.899 Other long term (current) drug therapy; E78.5 Hyperlipidemia, unspecified; E66.9 Obesity, unspecified; M79.89 Other specified soft tissue disorders
CPT/HCPCS: 73080; 80048; 83605; 84550; 85025; 86140; 87040; 93971; 96365; 96366; 96375; 99283; J7040; J7050; A4216

== ENCOUNTER 2022-10-29 11:00 | Emergency (ER) | payer MEDICARE, SELFPAY ==
[2022-10-29 11:01] VITALS: BP 142/78; PULSE 89; RESP 18; TEMP 36.9; O2SAT 99; BMI 44.6
[2022-10-29 11:02] VITALS: BP 142/78; PULSE 89; RESP 18; TEMP 36.9; O2SAT 94
--- NOTE | 2022-10-29 11:14 | EKG12_ITS ---
Test Reason : Blood Pressure : / mmHG Vent. Rate : 092 BPM Atrial Rate : 092 BPM P-R Int : 172 ms QRS Dur : 146 ms QT Int : 376 ms P-R-T Axes : 043 028 010 degrees QTc Int : 464 ms Normal sinus rhythm Right bundle branch block Abnormal ECG Confirmed by CYNTHIA JOHNSON, DONNIE ([id number]), industrial editor MARIA RYAN ([id number]) on 10/30/2022 1:07:47 PM Referred By: Confirmed By:DONNIE MARIE MD
--- NOTE | 2022-10-29 11:15 | EX.ED.DYSGE1 ---
HPI History of Present Illness Chief Complaint: Complaint Informant: patient Onset/Context/Timing Onset: Days Context: Gradual Onset Current Severity: Moderate Maximum Severity: Moderate Narrative Narrative: Patient presents with dysuria and frequency for the past couple days. He states he had chills all night last night. He has had some problems with constipation recently and took some Dulcolax. He states he was up with diarrhea overnight as well. He denies history of UTIs, but states he has pain and burning when he urinates. [facility] Medical History Diabetes High cholesterol HTN (hypertension) Hx of gout Home Medications amlodipine 10 mg tablet 10 mg PO DAILY 07/12/20 [History Last Taken Unknown] atorvastatin 40 mg tablet 40 mg PO DAILY 07/12/20 [History Last Taken Unknown] doxazosin 4 mg tablet 4 mg PO QHS 07/12/20 [History Last Taken Unknown] lisinopril 20 mg-hydrochlorothiazide 12.5 mg tablet 2 ea PO DAILY 07/12/20 [History Last Taken Unknown] metformin 500 mg tablet 500 mg PO DAILY 07/12/20 [History Last Taken Unknown] omeprazole 20 mg capsule,delayed release 20 mg PO DAILY 07/12/20 [History Last Taken Unknown] guaifenesin 600 mg tablet, extended release 12 hr 600 mg PO BID PRN Congestion ##10 07/13/20 [Rx Last Taken Unknown] cephalexin 500 mg capsule 500 mg PO Q6 #40 caps 08/01/20 [Rx Last Taken Unknown] ibuprofen 600 mg tablet 600 mg PO Q6H 7 days #28 TABLETS 03/15/22 [Rx Last Taken Unknown] sulfamethoxazole 800 mg-trimethoprim 160 mg tablet (Bactrim DS) 1 tab PO BID 10 days #20 tabs 03/17/22 [Rx Last Taken Unknown] potassium chloride 20 mEq tablet,extended release 20 meq PO BID #6 tabs 10/29/22 [Rx Last Taken Unknown] sulfamethoxazole 800 mg-trimethoprim 160 mg tablet (Bactrim DS) 1 tab PO BID 5 days #10 tabs 10/29/22 [Rx Last Taken Unknown] Allergy/AdvReac Type Severity Reaction Status Date / Time Penicillins [PCN] Allergy Hives Verified 10/29/22 11:00 anesthetic Allergy Rash Uncoded 10/29/22 11:00 Surgical History H/O left knee surgery Social History Smoking Status: Never smoker ROS ROS ED Constitutional Constitutional ED: Reports chills; Denies fever(s) Eyes Eyes: Denies change in vision or discharge from eye(s) ENT ENT ED: Denies discharge from eye(s), rhinorrhea or sore throat Cardiovascular Cardiovascular: Denies chest pain or palpitations Respiratory/Chest Respiratory/Chest: Denies cough or dyspnea Gastrointestinal Gastrointestinal: Reports abdominal pain and nausea; Denies diarrhea or vomiting Genitourinary Genitourinary ED: Reports dysuria and urinary frequency Musculoskeletal Musculoskeletal: Denies back pain or extremity pain Integumentary Denies Abrasions or rash Neurologic Neurologic: Denies headache(s) or weakness Psychiatric Psychiatric: Denies anxiety or depression Allergic/Immunologic Allergic/Immunologic ED: Denies lip swelling or urticaria EXAM Physical Exam Const Vital Signs: 10/29/22 11:01 10/29/22 11:14 10/29/22 11:02 Temperature 98.4 F 98.4 F Temperature Source Temporal Temporal Pulse Rate 89 89 Respiratory Rate 18 18 Blood Pressure 142/78 H 142/78 H Blood Pressure Mean 99 99 Pulse Ox 99 94 Oxygen Delivery Method Room Air Room Air Room Air Positive well nourished and well developed General Appearance ED: well developed HEENT Reports normocephalic and head/scalp atraumatic Eyes PERRL and EOMs intact bilaterally Neck supple Chest Wall inspection of chest normal and palpation of chest normal Resp normal respiratory effort and clear to auscultation bilaterally Cardio regular rate and regular rhythm GI GI Narrative: Suprapubic tenderness palpation. Hypoactive bowel sounds. Palpation: soft Back/Spine no CVA tenderness Extremity normal to inspection Neuro oriented x3 and no sensory deficits noted Sensorium / Orientation: alert Motor Exam: strength 5/5 throughout Psych mental status grossly normal Skin no rashes or lesions noted MDM MDM MDM Narrative Medical decision making narrative: Sepsis work-up initiated. Lab Data Attestation: I reviewed the patient's lab results. Labs: Laboratory Results - last 24 hr 10/29/22 10/29/22 10/29/22 11:45 12:00 12:00 WBC 13.0 H RBC 4.56 L Hgb 11.6 L Hct 37.5 L MCV 82.2 MCH 25.4 L MCHC 30.9 L RDW Std Deviation 45.6 H RDW Coeff of Viktoria 15.3 H Plt Count 227 MPV 9.9 Immature Gran % (Auto) 0.600 Neut % (Auto) 85.3 H Lymph % (Auto) 7.4 L [place] % (Auto) 6.1 Eos % (Auto) 0.3 Baso % (Auto) 0.3 Absolute Neuts (auto) 11.1 H Absolute Lymphs (auto) 0.96 Nucleated RBC % 0 PT 13.4 INR 1.1 APTT 27.9 Sodium Potassium Chloride Carbon Dioxide Anion Gap BUN Creatinine Estim Creat Clear Calc Est GFR (MDRD) Af Amer Est GFR (MDRD) Non-Af BUN/Creatinine Ratio Glucose Lactic Acid Calcium Total Bilirubin AST ALT Alkaline Phosphatase Total Protein Albumin Globulin Albumin/Globulin Ratio Urine Color Red Urine Clarity Cloudy Urine pH 6.0 Ur Specific [place] 1.010 Urine Protein 100 H Urine Glucose (UA) Normal Urine Ketones 5 H Urine Occult Blood 250 H Urine Nitrite Positive H Urine Bilirubin Negative Urine Urobilinogen 1 H Ur Leukocyte Esterase 500 H Urine RBC 50-100 SEEN Urine WBC 25-50 SEEN Ur Squamous Epith Cells 0 SEEN Urine Bacteria 3+ Urine Mucus 0 SEEN 10/29/22 10/29/22 12:00 12:00 WBC RBC Hgb Hct MCV MCH MCHC RDW Std Deviation RDW Coeff of Viktoria Plt Count MPV Immature Gran % (Auto) Neut % (Auto) Lymph % (Auto) Glenn % (Auto) Eos % (Auto) Baso % (Auto) Absolute Neuts (auto) Absolute Lymphs (auto) Nucleated RBC % PT INR APTT Sodium 139 Potassium 3.2 L Chloride 102 Carbon Dioxide 27.0 Anion Gap 10 BUN 20 H Creatinine 1.53 H Estim Creat Clear Calc 42.60 Est GFR (MDRD) Af Amer 58 L Est GFR (MDRD) Non-Af 48 L BUN/Creatinine Ratio 13.1 Glucose 144 H Lactic Acid 2.2 H* Calcium 9.1 Total Bilirubin 0.60 AST 16 ALT 30 Alkaline Phosphatase 74 Total Protein 7.5 Albumin 3.6 Globulin 3.9 Albumin/Globulin Ratio 0.9 Urine Color Urine Clarity Urine pH Ur Specific [place] Urine Protein Urine Glucose (UA) Urine Ketones Urine Occult Blood Urine Nitrite Urine Bilirubin Urine Urobilinogen Ur Leukocyte Esterase Urine RBC Urine WBC Ur Squamous Epith Cells Urine Bacteria Urine Mucus EKG Initial EKG: Attestation: I personally reviewed and interpreted this EKG as follows: Interpretation: Sinus Rhythm (Sinus at 92 with right bundle branch block. No acute ischemia. EKG is unchanged compared to prior study from June 2020.) Treatment and Re-Evaluation Narrative: Patient's white count is elevated at 13.0 with 85% neutrophils. Chemistry studies reveal potassium slightly low at 3.2. This is replaced orally. BUN is 20 and creatinine is 1.53. This is consistent with his prior values. Lactic acid is slightly elevated at 2.2. LFTs and coags are unremarkable. Urinalysis does reveal infection with 50-100 red cells, 25-50 white cells, 3+ bacteria and positive nitrites. Blood and urine cultures have been sent. Patient does have an allergy to penicillin. He is given a dose of IV Bactrim and prescription will be sent. He received 2 L of IV fluid here. His vital signs have remained stable and he has been afebrile. Blood pressure at this time is 132/65. Patient is given return instructions. He voices understanding and agreement. Discharge Plan Triage Chief Complaint: Complaint ED Provider: Adela Joy Dx/Rx/DC Orders Clinical Impression: UTI (urinary tract infection), Hypokalemia Instructions: ED Hypokalemia, ED Urinary Tract Infections in Men Prescriptions: New sulfamethoxazole-trimethoprim [Bactrim DS] 800-160 mg tablet 1 tab PO BID 5 Days Qty: 10 0RF potassium chloride 20 mEq tablet extended release 20 meq PO BID Qty: 6 0RF No Action atorvastatin 40 MG tablet 40 mg PO DAILY Label Comments: TAKE 1 TABLET BY MOUTH ONCE DAILY FOR CHOLESTEROL amlodipine 10 MG tablet 10 mg PO DAILY omeprazole 20 MG capsule 20 mg PO DAILY doxazosin 4 MG tablet 4 mg PO QHS metformin 500 MG tablet 500 mg PO DAILY lisinopril-hydrochlorothiazide 1 EACH tablet 2 ea PO DAILY guaifenesin 600 MG tablet extended release 12hr 600 mg PO BID PRN (Reason: Congestion) Qty: 10 0RF cephalexin 500 MG capsule 500 mg PO Q6 Qty: 40 0RF ibuprofen 600 mg tablet 600 mg PO Q6H 7 Days Qty: 28 0RF Rx Instructions: Take with Food sulfamethoxazole-trimethoprim [Bactrim DS] 800-160 mg tablet 1 tab PO BID 10 Days Qty: 20 0RF Primary Care Provider: Reese Aburto Referrals: Reese Aburto MD [Primary Care Provider] - 1 Week Disposition Disposition: Home, Self Care
[2022-10-29 12:02] LABS: Mucous, Urine 0 SEEN /hpf (<or=2+); Squamous Epithelial Cells - UA 0 SEEN /hpf (0-5)
[2022-10-29 12:03] LABS: Color, Urine Red (Yellow); Glucose, Dipstick Normal (Normal); Ketone-Dipstick 5 mg/dl (Negative); Leukocyte Esterase-Dipstick 500 /ul (Negative); Nitrite-Dipstick Positive (Negative); Occult Blood-Urine 250 /ul (Negative); Protein-Dipstick 100 mg/dl (Negative); Urine Bilirubin Dipstick Negative (Negative); Urine Clarity Cloudy (Clear); Urine Urobilinogen 1 mg/dl (Normal)
[2022-10-29 12:09] LABS: Bacteria 3+ /hpf (None Seen); Red Blood Cells-Urine 50-100 SEEN /hpf (0-5); White Blood Cells 25-50 SEEN /hpf (0-5)
[2022-10-29 12:16] LABS: Absolute Lymphocyte Count 0.96 X10^3/uL (0.83-4.51); Absolute Neutrophil Count 11.1 X10^3/uL (2.0-7.7); Basophil# 0.04 X10^3/uL; Basophil% 0.3 % (0-1); Eosinophil# 0.04 X10^3/uL; Eosinophils% 0.3 % (0-5); Hematocrit 37.5 % (40-54); Hemoglobin 11.6 g/dL (13.0-16.5); Lymphocyte # 0.96 X10^3/ul (0.83-4.51); Lymphocyte % 7.4 % (19-41); Mean Corp Hgb Conc 30.9 g/dL (32-36); Mean Corpuscular Hgb 25.4 pg (27.0-32.0); Mean Corpuscular Volume 82.2 fL (80-94); Mean Platelet Vol. 9.9 fl (6.2-12.0); Monocyte# 0.79 X10^3/uL; Monocyte% 6.1 % (0-10); NRBC Flagged by Analyzer 0 % (0-5); Neutrophil # 11.05 X10^3/uL (2.7-7.7); Neutrophil % 85.3 % (47-70); Platelet Count 227 K/mm3 (150-450); RBC Distribution Width CV 15.3 % (11.6-14.6); RBC Distribution Width SD 45.6 fl (35.1-43.9); Red Blood Count 4.56 M/mm3 (4.6-6.2)
[2022-10-29 12:26] LABS: ALB/GLOB Ratio 0.9 RATIO (0.9-2.4); AST(SGOT) 16 U/L (15-37); Alanine Aminotransfer ALT/SGPT 30 U/L (16-61); Albumin, Serum 3.6 g/dL (3.2-5.0); Alkaline Phosphatase 74 U/L (45-117); Anion Gap 10 (5-15); BUN 20 mg/dL (7-18); BUN/Creat Ratio 13.1 RATIO (10-20); Calcium,Total 9.1 mg/dL (8.5-10.1); Chloride 102 mmol/L (98-107); Creatinine, Serum 1.53 mg/dL (0.70-1.30); EST Glomerular Filtration Rate 48 mL/min (>60); Est Glom Filt Rate - Afr Amer 58 mL/min (>60); Globulin 3.9 g/dL (2.2-4.2); Glucose 144 mg/dL (74-106); Potassium 3.2 mmol/L (3.5-5.1); Protein, Total 7.5 g/dL (6.4-8.2); Sodium Level 139 mmol/L (136-145)
[2022-10-29 12:28] LABS: International Normalized Ratio 1.1; Partial Thromboplast Time 27.9 Seconds (24.1-36.2); Prothrombin Time (Protime)PT. 13.4 SECONDS (11.7-14.9)
[2022-10-29 12:42] LABS: Lactic Acid 2.2 mmol/L (0.4-1.9)
[2022-10-29 13:00] VITALS: BP 138/84; PULSE 72; RESP 18; O2SAT 94
[2022-10-29] MEDS: 0.9% Normal Saline 1,000 ML 999 ML IV ×2 (13:04→13:30)
[2022-10-29] MEDS: Potassium Chloride Oral Tablet 20 MEQ 40 MEQ PO (13:05)
[2022-10-29 16:07] LABS: Reflex Lactate? Y
== END 2022-10-29 15:45 | disposition home or self-care (01) ==
PROVIDERS: Emergency Provider Emergency Medicine; PCP Internal Medicine; Visit Provider Emergency Medicine
DX: N39.0 Urinary tract infection, site not specified (principal); E87.6 Hypokalemia; R10.9 Unspecified abdominal pain
CPT/HCPCS: 80053; 81001; 83605; 85025; 85610; 85730; 87040; 87077; 87086; 87088; 87186; 93005; 96365; 96366; 99285; J7030; A4216

== ENCOUNTER 2022-11-08 19:12 | Emergency (ER) | payer MEDICARE, SELFPAY ==
[2022-11-08 19:12] VITALS: BP 142/85; PULSE 103; RESP 18; TEMP 36.1; O2SAT 96; BMI 45.8
--- NOTE | 2022-11-08 22:08 | EX.ED.UPPERE ---
HPI History of Present Illness Chief Complaint: Upper Extremity Injury Narrative Narrative: 71-year-old male past medical history of diabetes, hypertension, gout, presents with pain and swelling of his right elbow that has had for the last 2 days. He noticed some redness mainly on the lateral aspect of his right elbow. He is right-hand dominant. He denies any recent trauma to the area. No fevers or chills. No nausea or vomiting. He noticed redness and swelling and pain when he tries to flex and extend his elbow. He had gout previously in his left elbow remotely. No recent falls. He has been taking ibuprofen with mild relief of his symptoms. [facility] Medical History Diabetes High cholesterol HTN (hypertension) Hx of gout Home Medications amlodipine 10 mg tablet 10 mg PO DAILY 07/12/20 [History Last Taken Unknown] atorvastatin 40 mg tablet 40 mg PO DAILY 07/12/20 [History Last Taken Unknown] doxazosin 4 mg tablet 4 mg PO QHS 07/12/20 [History Last Taken Unknown] lisinopril 20 mg-hydrochlorothiazide 12.5 mg tablet 2 ea PO DAILY 07/12/20 [History Last Taken Unknown] metformin 500 mg tablet 500 mg PO DAILY 07/12/20 [History Last Taken Unknown] omeprazole 20 mg capsule,delayed release 20 mg PO DAILY 07/12/20 [History Last Taken Unknown] guaifenesin 600 mg tablet, extended release 12 hr 600 mg PO BID PRN Congestion ##10 07/13/20 [Rx Last Taken Unknown] cephalexin 500 mg capsule 500 mg PO Q6 #40 caps 08/01/20 [Rx Last Taken Unknown] ibuprofen 600 mg tablet 600 mg PO Q6H 7 days #28 TABLETS 03/15/22 [Rx Last Taken Unknown] potassium chloride 20 mEq tablet,extended release 20 meq PO BID #6 tabs 10/29/22 [Rx Last Taken Unknown] sulfamethoxazole 800 mg-trimethoprim 160 mg tablet (Bactrim DS) 1 tab PO BID #20 tabs 11/08/22 [Rx Last Taken Unknown] Allergy/AdvReac Type Severity Reaction Status Date / Time Penicillins [PCN] Allergy Hives Verified 11/08/22 19:14 anesthetic Allergy Rash Uncoded 10/29/22 11:00 Surgical History H/O left knee surgery Social History Smoking Status: Never smoker ROS ROS ED ROS Narrative Constitutional: No fever, no chills. HEENT: No sore throat. No neck pain. No loss of vision. No rhinorrhea. Cardiovascular: No chest pain. No palpitations. No pedal edema. Respiratory: No cough, no shortness of breath. Abdominal: No abdominal pain. No nausea. No vomiting. Genitourinary: No dysuria. No hematuria. Musculoskeletal: No myalgias. Right elbow pain and swelling laterally with mild redness. Neurologic: No headaches. No dizziness. No lightheadedness. Skin: No rash. No change in color. Psychiatric: No depression. No anxiety. EXAM Physical Exam Narrative Exam Narrative: Afebrile. Vital signs noted. Nontoxic-appearing. HEENT: Normocephalic. Atraumatic. PERRL, EOMI. Neck soft and supple. No point tenderness or step off. Cardiovascular: Regular rate and rhythm with intermittent tachycardia. No murmurs, rubs, or gallops appreciated. Respiratory: No tachypnea. Lungs clear to auscultation bilaterally. Gastrointestinal: Abdomen soft, nontender, with normoactive bowel sounds. No rebound or guarding. Neurological: Awake. Alert. Nonfocal, nonlateralizing. Skin: No rash. Normal color. No pallor. Musculoskeletal: No pedal edema. Full range of motion extremities with exception of flexion extension of right elbow secondary to pain. He is neurovascular intact distally with palpable radial pulse. No olecranon bursa tenderness or swelling. Minimal erythema over radial head area with minimal swelling. Flexion extension still intact. No pain with passive range of motion. Const Vital Signs: 11/08/22 19:12 Temperature 97 F L Temperature Source Temporal Pulse Rate 103 H Respiratory Rate 18 Blood Pressure 142/85 H Blood Pressure Mean 104 Pulse Ox 96 Oxygen Delivery Method Room Air MDM MDM MDM Narrative Medical decision making narrative: In the differential diagnosis is gout versus cellulitis. He does have some dry flaky skin in the area of his right elbow. He is allergic to penicillin. He states Motrin has been helping so he will continue this. Even if it were gout, treatment will be with [id number] analgesics and diet modification. I do not feel laboratory work is currently indicated. I think this is probably more of a cellulitis. I have not is concern for septic arthritis as he does not have fever, and he has no pain with passive range of motion. X-rays were obtained of the right elbow and 3 views and he was given his first dose of Bactrim here in the emergency department. Prescription was written for the next 10 days. X-rays interpreted by myself show no evidence of acute fracture, no joint effusion. At this point in time, I feel he can be discharged safely home with follow-up to his primary care physician. Return instructions to the emergency department were reviewed. Disposition is discharged home in stable condition. Discharge Plan Triage Chief Complaint: Upper Extremity Injury ED Provider: Abhishek Gutierrez Dx/Rx/DC Orders Clinical Impression: Cellulitis of right elbow, Elbow pain, right Instructions: ED Arthralgia, ED Cellulitis Prescriptions: New sulfamethoxazole-trimethoprim [Bactrim DS] 800-160 mg tablet 1 tab PO BID Qty: 20 0RF No Action atorvastatin 40 MG tablet 40 mg PO DAILY Label Comments: TAKE 1 TABLET BY MOUTH ONCE DAILY FOR CHOLESTEROL amlodipine 10 MG tablet 10 mg PO DAILY omeprazole 20 MG capsule 20 mg PO DAILY doxazosin 4 MG tablet 4 mg PO QHS metformin 500 MG tablet 500 mg PO DAILY lisinopril-hydrochlorothiazide 1 EACH tablet 2 ea PO DAILY guaifenesin 600 MG tablet extended release 12hr 600 mg PO BID PRN (Reason: Congestion) Qty: 10 0RF cephalexin 500 MG capsule 500 mg PO Q6 Qty: 40 0RF ibuprofen 600 mg tablet 600 mg PO Q6H 7 Days Qty: 28 0RF Rx Instructions: Take with Food potassium chloride 20 mEq tablet extended release 20 meq PO BID Qty: 6 0RF Primary Care Provider: Reese Aburto Referrals: Reese Aburto MD [Primary Care Provider] - 1-2 Days if not improving Disposition Disposition: Home, Self Care
--- NOTE | 2022-11-08 22:40 | RAD_ITS ---
INDICATION: Pain, swelling EXAMINATION/TECHNIQUE: X-RAY - RIGHT XR Elbow Min 3 Views COMPARISON: None. FINDINGS: SOFT TISSUES: Mild diffuse elbow edema. No subcutaneous emphysema. Moderate elbow joint effusion. No radiopaque foreign body. BONES/JOINTS: No acute fracture or subluxation. Normal alignment. Moderate osteophyte formation about the olecranon fossa. Mild radial head osteophyte formation. Enthesopathy at the medial epicondyle. No sclerotic or destructive changes observed. RAD/Elbow min 3 Views IMPRESSION: Moderate degenerative changes with nonspecific joint effusion and diffuse elbow edema No acute osseous finding. Electronically Signed: Young Munoz MD at 23:07 EST ,
[2022-11-08] MEDS: Smz/Tmp Ds Tablet 1 TABLET PO (22:57)
== END 2022-11-09 | disposition home or self-care (01) ==
PROVIDERS: Emergency Provider Emergency Medicine; PCP Internal Medicine; Visit Provider Emergency Medicine
DX: L03.113 Cellulitis of right upper limb (principal); E11.9 Type 2 diabetes mellitus without complications; M25.521 Pain in right elbow; E78.00 Pure hypercholesterolemia, unspecified; I10 Essential (primary) hypertension; Z87.898 Personal history of other specified conditions; Z79.899 Other long term (current) drug therapy
CPT/HCPCS: 73080; 99282; A4216

== ENCOUNTER 2025-01-12 00:18 | Emergency (ER) | payer MEDICARE, SELFPAY ==
[2025-01-12 00:19] VITALS: BP 143/54; PULSE 78; RESP 16; TEMP 36.7; O2SAT 97; BMI 45.5
--- NOTE | 2025-01-12 00:42 | EDS_ITS ---
HPI History of Present Illness Chief Complaint: Lower Extremity Injury Informant: patient and family Narrative Narrative: Gradual spontaneous onset left ankle pain and swelling over the past 20 hours or so. Now to the point where anything barely touching it hurts, and he cannot move his ankle because of severe pain. No systemic symptoms or fever/chills. History of gout, has had it in both great toe MTPJ's in the past, last episode was a week or 2 ago and he just finished prednisone for 5 days ago and is due to follow-up with his doctor, he does not take preventative such as allopurinol but has had multiple bouts and he wants to discuss this. He denies any injury to his ankle recently. He was also concerned because on the contralateral foot, he had a posterior heel spur that ended up needing foot surgery. [facility] Medical History Hx of gout High cholesterol HTN (hypertension) Diabetes Home Medications ?Medication ?Instructions ?Recorded ?Last Taken ?Type amlodipine 10 mg tablet 10 mg PO DAILY 07/12/20 Unkn own History atorvastatin 40 mg tablet 40 mg PO DAILY 07/12/20 Unkn own History doxazosin 4 mg tablet 4 mg PO QHS 07/12/20 Unknown History lisinopril 20 2 ea PO DAILY 07/12/20 Unkno wn History mg-hydrochlorothiazide 12.5 mg tablet metformin 500 mg tablet 500 mg PO DAILY 07/12/20 Unk nown History omeprazole 20 mg capsule,delayed 20 mg PO DAILY Unknown History release guaifenesin 600 mg tablet, 600 mg PO BID PRN Congestio n ##10 07/13/20 Unknown Rx extended release 12 hr cephalexin 500 mg capsule 500 mg PO Q6 #40 caps Unknown Rx ibuprofen 600 mg tablet 600 mg PO Q6H 7 days #28 TAB LETS 03/15/22 Unknown Rx potassium chloride 20 mEq 20 meq PO BID #6 tabs Unknown Rx tablet,extended release sulfamethoxazole 800 1 tab PO BID #20 tabs Unknown Rx mg-trimethoprim 160 mg tablet (Bactrim DS) oxycodone-acetaminophen 5 mg-325 1 tab PO Q6H PRN PRN Pain 3 days 01/12/25 Unknown Rx mg tablet #10 TABLETS prednisone 20 mg tablet 20 mg PO DAILY 5 days #6 tab s 01/12/25 Unknown Rx Allergy/AdvReac Type Severity Reaction Status Date / Time Anesthetics - Amide Type - Allergy Rash Verified 01/12/25 00:24 Select A Penicillins (PCN) Allergy Hives Verified 01/12/25 00:24 Surgical History H/O left knee surgery Social History Smoking Status: Never smoker ROS ROS ED Constitutional Constitutional ED: Denies chills or fever(s) Musculoskeletal Musculoskeletal: Reports extremity pain; Denies neck pain Integumentary Denies Abrasions, rash or wounds Neurologic Neurologic: Denies paresthesias or weakness EXAM Physical Exam Const Vital Signs: 01/12/25 00:19 Temperature 98.0 F Temperature Source Oral Pulse Rate 78 Respiratory Rate 16 Blood Pressure 143/54 H Blood Pressure Mean 83 Pulse Ox 97 Oxygen Delivery Method Room Air Positive well nourished and well developed General Appearance ED: well developed and NAD Neck full ROM and supple Back/Spine normal ROM and normal to inspection Extremity Extremity Narrative: Swollen left ankle, there is no erythema but it is a little warm to the touch compared to surrounding areas. Very tender very superficially in this general area. Very limited range of motion due to pain. Bounding dorsalis pedis 2+ pulse. Neurovascular intact distally. No other joints appear to be affected and he can range everything without difficulty otherwise. Neuro oriented x3, no focal motor deficits and no sensory deficits noted Sensorium / Orientation: alert Psych mental status grossly normal and thought process normal Skin no wounds Rashes: no rashes MDM MDM MDM Narrative Medical decision making narrative: I suspect this is gout. Also in the differential is a septic arthritis as clinically the 2 are indistinguishable usually. However the patient does not javed ve a specific risk factor for having a septic arthritis nor does he have fevers, chills, systemic symptoms, or abnormal vital signs. His labs are reviewed and are more consistent with an inflammatory arthritis such as gout especially with an elevated uric acid then they are with a septic arthritis. Additionally obtained three-view x-ray of the left ankle, given his history of spurs on the contralateral heel, my interpretation I see no acute spur and there is no acute abnormality although there is diffuse swelling about the joint. As I discussed with the patient, definitive diagnosis can only be obtained by obtaining joint fluid to send for analysis including crystals and culture. Patient does not want to do that at this time, we discussed the risks of treating with steroids empirically, and the low likelihood although I am not able to rule out the possibility of a septic arthritis that could be worse with steroids and if he does get worse he should come back to the ER immediately and discontinue further steroids. They understand this and are okay with doing that. They are requesting that his steroids be dosed at half dose because he responded well to that in the past with regards to gout, and has trouble sleeping at night and has unpleasant side effects. He was offered crutches as well, but declines as he has a knee scooter at home, we will give him an Jl wrap for now, and prescription for analgesics which were given here as well. Lab Data Attestation: I reviewed the patient's lab results. Labs: Laboratory Results - last 24 hr 01/12/25 00:49 WBC 10.4 RBC 3.59 L Hgb 9.5 L Hct 28.9 L MCV 80.5 MCH 26.5 L MCHC 32.9 RDW Std Deviation 44.2 H RDW Coeff of Viktoria 15.1 H Plt Count 250 MPV 9.4 Immature Gran % (Auto) 0.400 Neut % (Auto) 74.4 H Lymph % (Auto) 16.5 L [place] % (Auto) 7.1 Eos % (Auto) 1.4 Baso % (Auto) 0.2 Absolute Neuts (auto) 7.7 Absolute Lymphs (auto) 1.71 Nucleated RBC % 0 ESR 21 H Sodium 137 Potassium 3.2 L Chloride 100 Carbon Dioxide 24.2 Anion Gap 13 BUN 21 H Creatinine 1.87 H Estim Creat Clear Calc 45.19 L Est GFR (MDRD) Non-Af 38 L BUN/Creatinine Ratio 11.4 Glucose 120 H Uric Acid 10.6 H Calcium 8.9 C-React Prot Ext Range 19.30 H Radiography Diagnostic Testing: Clinical Impression(s) from Imaging Studies Ankle X-Ray 01/12/25 01:00 IMPRESSION: Soft tissue swelling about the ankle. A mono articular arthropathy can be seen with infection or crystal deposition disease among others, nonspecific, clinically correlate. Osteoarthrosis and enthesopathic changes noted as above. Reading Location: [facility] Discharge Plan Triage Chief Complaint: Lower Extremity Injury ED Provider: Miki Moya Dx/Rx/DC Orders Clinical Impression: Gouty arthritis of left ankle Instructions: ED Gout, ED Gout Diet Prescriptions: New prednisone 20 mg tablet 20 mg PO DAILY 5 Days Qty: 6 0RF oxycodone-acetaminophen 5-325 mg tablet 1 tab PO Q6H PRN PRN (Reason: Pain) 3 Days Qty: 10 0RF No Action atorvastatin 40 MG tablet 40 mg PO DAILY Patient Comments: TAKE 1 TABLET BY MOUTH ONCE DAILY FOR CHOLESTEROL amlodipine 10 MG tablet 10 mg PO DAILY omeprazole 20 MG capsule 20 mg PO DAILY doxazosin 4 MG tablet 4 mg PO QHS metformin 500 MG tablet 500 mg PO DAILY lisinopril-hydrochlorothiazide 1 EACH tablet 2 ea PO DAILY guaifenesin 600 MG tablet extended release 12hr 600 mg PO BID PRN (Reason: Congestion) Qty: 10 0RF cephalexin 500 MG capsule 500 mg PO Q6 Qty: 40 0RF ibuprofen 600 mg tablet 600 mg PO Q6H 7 Days Qty: 28 0RF Rx Instructions: Take with Food potassium chloride 20 mEq tablet extended release 20 meq PO BID Qty: 6 0RF sulfamethoxazole-trimethoprim [Bactrim DS] 800-160 mg tablet 1 tab PO BID Qty: 20 0RF Primary Care Provider: Reese Aburto Referrals: Reese Aburto MD [Primary Care Provider] - As soon as possible Print Language: [place] Disposition Disposition: Home, Self Care
[2025-01-12 00:54] LABS: Absolute Lymphocyte Count 1.71 X10^3/uL (0.83-4.51); Absolute Neutrophil Count 7.7 X10^3/uL (2.0-7.7); Basophil# 0.02 X10^3/uL; Basophil% 0.2 % (0-1); Eosinophil# 0.15 X10^3/uL; Eosinophils% 1.4 % (0-5); Hematocrit 28.9 % (40-54); Hemoglobin 9.5 g/dL (13.0-16.5); Lymphocyte # 1.71 X10^3/ul (0.83-4.51); Lymphocyte % 16.5 % (19-41); Mean Corp Hgb Conc 32.9 g/dL (32-36); Mean Corpuscular Hgb 26.5 pg (27.0-32.0); Mean Corpuscular Volume 80.5 fL (80-94); Mean Platelet Vol. 9.4 fl (6.2-12.0); Monocyte# 0.74 X10^3/uL; Monocyte% 7.1 % (0-10); NRBC Flagged by Analyzer 0 % (0-5); Neutrophil # 7.71 X10^3/uL (2.7-7.7); Neutrophil % 74.4 % (47-70); Platelet Count 250 K/mm3 (150-450); RBC Distribution Width CV 15.1 % (11.6-14.6); RBC Distribution Width SD 44.2 fl (35.1-43.9); Red Blood Count 3.59 M/mm3 (4.6-6.2); White Blood Count 10.4 K/mm3 (4.4-11.0)
[2025-01-12] MEDS: Ondansetron 4 MG/2 ML Vial IV (00:54)
[2025-01-12] MEDS: Ketorolac 15 MG/ML Vial IV (00:54)
[2025-01-12] MEDS: Morphine 4 MG/ML Syringe IV (00:55)
--- NOTE | 2025-01-12 01:00 | RAD_ITS ---
PROCEDURE: ANKLE MIN 3 VIEWS 01/12/2025 REASON FOR EXAM: PAIN/SWELLING TECHNIQUE: 3 views of the left ankle COMPARISON: None available FINDINGS: No fracture or dislocation. The joint spaces appear within limits. Soft tissue swelling about the ankle. Osteoarthrosis noted. Enthesophyte formation at the Achilles greater than plantar surfaces of the calcaneus and base of the 5th metatarsal. Vascular calcifications noted. Midfoot osteoarthrosis. No sclerosis, periosteal reaction or osseous destruction identified. RAD/Ankle min 3 Views IMPRESSION: Soft tissue swelling about the ankle. A mono articular arthropathy can be seen with infection or crystal deposition disease among others, nonspecific, clinically correlate. Osteoarthrosis and enthesopathic changes noted as above. Reading Location: [id number]
[2025-01-12 01:12] LABS: Anion Gap 13 (5-15); BUN 21 mg/dL (4-19); BUN/Creat Ratio 11.4 RATIO (10-20); Calcium,Total 8.9 mg/dL (7.6-11.0); Carbon Dioxide 24.2 mmol/L (21.0-32.0); Chloride 100 mmol/L (98-108); Creatinine, Serum 1.87 mg/dL (0.70-1.20); EST Glomerular Filtration Rate 38 (>60); Estimated Creatinine Clearance 45.19 ml/min (50-250); Glucose 120 mg/dL (70-99); Potassium 3.2 mmol/L (3.3-5.1); Sodium Level 137 mmol/L (133-145)
[2025-01-12 01:29] LABS: Erythrocyte Sedimentation Rate 21 mm/hr (0-20)
[2025-01-12 01:31] LABS: Uric Acid 10.6 mg/dL (3.5-7.2)
[2025-01-12] MEDS: oxyCODONE 5 MG Tablet PO (02:01)
[2025-01-12] MEDS: MethylPREDNISolone 125 MG/2 ML Vial 60 MG IV (02:01)
[2025-01-12] MEDS: fentaNYL 100 MCG/2 ML Ampul 25 MCG IV (02:01)
[2025-01-12 02:04] VITALS: BP 137/70; PULSE 70; RESP 18; TEMP 36.8; O2SAT 91
[2025-01-12 02:06] VITALS: PULSE 73; RESP 16; O2SAT 92
== END 2025-01-12 02:24 | disposition home or self-care (01) ==
PROVIDERS: Emergency Provider Emergency Medicine; PCP Internal Medicine; Visit Provider Emergency Medicine
DX: M10.072 Idiopathic gout, left ankle and foot (principal); E11.9 Type 2 diabetes mellitus without complications; E78.00 Pure hypercholesterolemia, unspecified; I10 Essential (primary) hypertension; Z79.899 Other long term (current) drug therapy; Z79.84 Long term (current) use of oral hypoglycemic drugs
CPT/HCPCS: 73610; 80048; 84550; 85025; 85652; 86140; 96374; 96375; 99282; A4216; J2405

== ENCOUNTER 2025-04-06 08:32 | Emergency (ER) | payer MEDICARE, SELFPAY ==
[2025-04-06 08:32] VITALS: BP 121/62; PULSE 73; RESP 14; TEMP 36.7; O2SAT 98; BMI 41.7
--- NOTE | 2025-04-06 08:54 | EX.ED.DYSGE1 ---
HPI History of Present Illness Chief Complaint: Weakness Informant: patient Narrative Narrative: Patient presents by private vehicle with described since vertigo symptoms on and off for the past week. Worsened today at work. States when he bends over and stands up he feels symptoms in his neck slight spinning. No nausea. Denies headache or visual changes. He has had mild symptoms in the past. Today worsened at work and decided he should get it checked out. He drove here. Did not have any symptoms we drove here. He has chronic ringing of the ears as he wears earmuffs at work. Denies recent illness no cough no vomiting or diarrhea. No urinary symptoms. No black or bloody stools. Reports no recent imagings of his brain. He is a diabetic history of CKD followed by nephrology. Review labs from his [facility] phone in December 2024 creatinine 1.5 with GFR 46. Prior similar symptoms: Yes PFSH PFS Medical History Hx of gout High cholesterol HTN (hypertension) Diabetes Home Medications ?Medication ?Instructions ?Recorded ?Last Taken ?Type atorvastatin 40 mg tablet 40 mg PO DAILY cholesterol 07/12/20 04/05/25 History lisinopril 20 2 ea PO DAILY htn 07/12/20 04/06/25 History mg-hydrochlorothiazide 12.5 mg tablet amitriptyline 50 mg tablet 50 mg PO QHS mood 04/06/25 04/05/25 History berberine chloride 500 mg capsule 1,000 mg PO DAILY dm 04/06/25 04/06/25 History cranberry 500 mg capsule 500 mg PO DAILY supplemeent 04/06/25 04/05/25 History diltiazem HCl 360 mg 360 mg PO DAILY bp 04/06/25 04/06/25 History capsule,extended release 24 hr doxazosin 8 mg tablet 8 mg PO DAILY htn 04/06/25 04/05/25 History potassium chloride 10 mEq 10 meq PO DAILY supplement 04/06/25 04/05/25 History tablet,extended release(part/cryst) sour felton extract 1,000 mg 1,000 mg PO BID 04/06/25 04/06/25 History capsule (Tart Felton Extract) vitamin E 268 mg (400 unit) capsule 268 mg PO DAILY supplement 04/06/25 04/05/25 History Allergy/AdvReac Type Severity Reaction Status Date / Time Anesthetics - Amide Type - Allergy Rash Verified 04/06/25 08:33 Select A Penicillins (PCN) Allergy Hives Verified 04/06/25 08:33 Surgical History H/O left knee surgery Social History Smoking Status: Never smoker ROS ROS ED Constitutional Constitutional ED: Denies chills, fever(s) or sweats ENT ENT ED: Denies sore throat Cardiovascular Cardiovascular: Denies chest pain, leg edema, palpitations or racing heartbeat Respiratory/Chest Respiratory/Chest: Denies cough, dyspnea or dyspnea on exertion Gastrointestinal Gastrointestinal: Denies abdominal pain, diarrhea, nausea or vomiting Genitourinary Genitourinary ED: Denies dysuria, hematuria or urinary frequency Musculoskeletal Musculoskeletal: Denies back pain, extremity pain or neck pain Integumentary Denies rash or wounds Neurologic Neurologic: Reports weakness and other Details: vertigo ; Denies headache(s) or paresthesias EXAM Physical Exam Const Vital Signs: 04/06/25 08:32 04/06/25 08:47 Temperature 98.1 F Temperature Source Temporal Pulse Rate 73 Respiratory Rate 14 Respiratory Effort Normal Non-Labored Respiratory Pattern Normal Blood Pressure 121/62 H Blood Pressure Mean 81 Pulse Ox 98 Oxygen Delivery Method Room Air Positive well nourished and well developed General Appearance ED: well developed and NAD HEENT Reports TM's clear and moist mucous membranes normocephalic and atraumatic Tympanic Membrane ED: Yes TM's clear Eyes General Eye ED: Yes normal appearance of both eyes Neck full ROM Chest Wall Chest: Negative for tenderness Resp normal respiratory effort and normal air movement Effort and Inspection: symmetric chest movement; Negative for respiratory distress Cardio regular rate, regular rhythm and no murmurs Peripheral Pulses: pulses 2+ throughout GI normal to inspection, nondistended, normoactive bowel sounds and non-tender Palpation: Negative for guarding or rebound tenderness present Extremity normal to inspection General Extremety ED: Negative for edema or tenderness General Extremity: Negative for edema Neuro oriented x3, CN's II-XII intact bilaterally and no sensory deficits noted Neuro Narrative: Suraj-Hallpike negative bilaterally. Sensorium / Orientation: awake and alert Skin no rashes or lesions noted and no wounds MDM MDM MDM Narrative Medical decision making narrative: Interventions / MDM: Differential diagnosis: Vertigo, chronic kidney disease, carotid artery disease, anemia Diagnosis considered but do not suspect: Intracranial hemorrhage, intracranial mass, severe artery disease however CT is negative. My EKG interpretation: Sinus rate of 59, no ST or T wave findings. Right bundle branch block. Similar findings October 2022. Imaging independently reviewed and interpreted by myself: N/A External documents reviewed: Labs January 12, 2025 creatinine 1.8 GFR 38. Hemoglobin 9.5 Test considered but not ordered:N/A ED course: Patient currently asymptomatic describes vertigo symptoms on past week worse today. No focal deficits on exam. [place]-Hallpike negative. No recent imagings. Will check EKG labs. Obtain CT angiogram head and neck for further evaluation. 2254 CT angiogram mild: Internal carotid artery disease on the right side. No other abnormalities. Labs stable anemia hemoglobin 10.5 up from 9.53 months ago. Creatinine 1.8 GFR 38 similar to creatinine January 12. He is able to ambulate restroom with no return of symptoms. Discussed vertigo symptoms. He is on a statin. He has a PCP follow-up this coming week. He declined any additional medications for symptoms. Return precaution discussed. All questions were answered. Re-evaluation: stable Disposition discussed with patient/family/significant other: Patient and family Case discussed with consulting clinician: N/A This note was generated with [employer] dictation software. It may contain incorrect words, spelling, and punctuation that were not noted in checking the note before signing. Lab Data Attestation: I reviewed the patient's lab results. Labs: Laboratory Results - last 24 hr 04/06/25 08:45 WBC 8.1 RBC 4.09 L Hgb 10.5 L Hct 33.4 L MCV 81.7 MCH 25.7 L MCHC 31.4 L RDW Std Deviation 45.7 H RDW Coeff of Viktoria 15.3 H Plt Count 268 MPV 9.3 Immature Gran % (Auto) 0.500 Neut % (Auto) 74.6 H Lymph % (Auto) 17.0 L [place] % (Auto) 5.8 Eos % (Auto) 1.7 Baso % (Auto) 0.4 Absolute Neuts (auto) 6.0 Absolute Lymphs (auto) 1.37 PT 14.4 INR 1.1 APTT 28.7 Sodium 140 Potassium 3.7 Chloride 102 Carbon Dioxide 24.2 Anion Gap 14 BUN 20 H Creatinine 1.85 H Estim Creat Clear Calc 43.50 L Est GFR (MDRD) Non-Af 38 L BUN/Creatinine Ratio 11.0 Glucose 118 H Calcium 9.3 Radiography Diagnostic Testing: Clinical Impression(s) from Imaging Studies Head/Neck CTA 04/06/25 09:50 IMPRESSION: No significant abnormality is seen. Reading Location: [place] [id number] Discharge Plan Triage Chief Complaint: Weakness ED Provider: Elbert Rivas Dx/Rx/DC Orders Clinical Impression: Vertigo, Mild carotid artery disease, CKD (chronic kidney disease) stage 3, GFR 30-59 ml/min, Anemia Instructions: ED Vertigo, Unspecified, Carotid Artery Disease Prescriptions: No Action atorvastatin 40 MG tablet 40 mg PO DAILY Patient Comments: TAKE 1 TABLET BY MOUTH ONCE DAILY FOR CHOLESTEROL lisinopril-hydrochlorothiazide 1 EACH tablet 2 ea PO DAILY diltiazem HCl 360 mg capsule,extended release 24hr 360 mg PO DAILY amitriptyline 50 mg tablet 50 mg PO QHS doxazosin 8 mg tablet 8 mg PO DAILY potassium chloride 10 mEq tablet,ER particles/crystals 10 meq PO DAILY vitamin E 268 mg (400 unit) capsule 268 mg PO DAILY Rx Instructions: pt states unsure what strength Tart Felton Extract 1,000 mg capsule 1,000 mg PO BID Rx Instructions: pt states unsure of strength. takes one cap am and liquid pm berberine chloride 500 mg capsule 1,000 mg PO DAILY cranberry 500 mg capsule 500 mg PO DAILY Rx Instructions: administer with a meal Primary Care Provider: Reese Aburto Referrals: Reese Aburto MD [Primary Care Provider] - Keep Gil appointment Activity Restrictions/Additional Instructions: Your CT angiogram head and neck mild right sided carotid artery disease less than 50%. Labs are stable with your anemia and kidney disease. Continue oral fluids for hydration over the next couple days. Keep your follow-up with your doctor. Any return of symptoms that is worsening, return to ED for reevaluation. Print Language: Marshallese Disposition Disposition: Home, Self Care
--- NOTE | 2025-04-06 08:56 | EKG12_ITS ---
Test Reason : WEAKNESS Blood Pressure : */* mmHG Vent. Rate : 59 BPM Atrial Rate : 59 BPM P-R Int : 104 ms QRS Dur : 148 ms QT Int : 480 ms P-R-T Axes : 9 -3 6 degrees QTcB Int : 475 ms Sinus bradycardia with short IL Right bundle branch block Minimal voltage criteria for LVH, may be normal variant ( R in aVL ) Abnormal ECG bpm Confirmed by Junaid Larsen ([id number]), news video editor DANAE SPANN ([id number]) on 04/08/2025 11:16:20 AM Referred By: Confirmed By: Junaid Larsen
[2025-04-06] MEDS: 0.9% Normal Saline (500mL Bag) 500 ML 1000 ML IV (09:04)
[2025-04-06 09:11] LABS: Prothrombin Time (Protime)PT. 14.4 SECONDS (11.7-14.9)
[2025-04-06 09:12] LABS: White Blood Count 8.1 K/mm3 (4.4-11.0)
[2025-04-06 09:13] LABS: Hematocrit 33.4 % (40-54); Hemoglobin 10.5 g/dL (13.0-16.5); Immature Granulocytes Count 0.040 X10^3/uL (0.0-0.0); Mean Corp Hgb Conc 31.4 g/dL (32-36); Mean Corpuscular Volume 81.7 fL (80-94); Mean Platelet Vol. 9.3 fl (6.2-12.0); Partial Thromboplast Time 28.7 Seconds (24.1-36.2); Platelet Count 268 K/mm3 (150-450); RBC Distribution Width CV 15.3 % (11.6-14.6); RBC Distribution Width SD 45.7 fl (35.1-43.9); Red Blood Count 4.09 M/mm3 (4.6-6.2)
[2025-04-06 09:34] LABS: Anion Gap 14 (5-15); BUN 20 mg/dL (4-19); BUN/Creat Ratio 11.0 RATIO (10-20); Calcium,Total 9.3 mg/dL (7.6-11.0); Carbon Dioxide 24.2 mmol/L (21.0-32.0); Chloride 102 mmol/L (98-108); Estimated Creatinine Clearance 43.50 ml/min (50-250); Glucose 118 mg/dL (70-99); Potassium 3.7 mmol/L (3.3-5.1)
--- NOTE | 2025-04-06 09:50 | CT_ITS ---
PROCEDURE: CTA HEAD AND NECK W/ CONTRAST 04/06/2025 REASON FOR EXAM: VERTIGO TECHNIQUE: CTA HEAD AND NECK W/ CONTRAST Multiplanar Sagittal and Coronal images were obtained. CONTRAST: Isovue 370 VOLUME: 100 mL One or more dose reduction techniques were used (e.g., Automated exposure control, adjustment of the mA and/or kV according to patient size, use of iterative reconstruction technique). RADIATION DOSE SUMMARY: CTDlvol: 28.5 mGy DLP: 1627.56 mGycm COMPARISON: None FINDINGS: Aortic Arch: Normal size and branching pattern. No significant atherosclerotic plaque. Brachiocephalic and Subclavians: Unremarkable RIGHT Carotid: Right CCA: Unremarkable. Right ICA: Mild calcified and soft plaque. Maximum stenosis (NASCET): <50 % Right ECA: Unremarkable. LEFT Carotid: Left CCA: Unremarkable. Left ICA: Unremarkable. Left ECA: Unremarkable. Vertebrals: Codominant. Arise from the subclavians. Both vertebrals form the basilar. RIGHT Vertebral: Unremarkable. LEFT Vertebral: Unremarkable. Anatomy: [place] anatomy is normal. Aneurysm or avm: No intracranial aneurysms or large vascular malformations are identified. Anterior cerebral arteries: Middle cerebral arteries: Unremarkable. Basilar artery: Unremarkable. Posterior cerebral arteries: Unremarkable. Other major branches of the posterior circulation: Unremarkable. Major venous structures: Unremarkable. Other findings: Neck: Lungs: Bones: CT/CTA Head AND Neck W/ Contrast IMPRESSION: No significant abnormality is seen. Reading Location: [place] [id number]
[2025-04-06 10:32] VITALS: BP 118/60; PULSE 80; RESP 19; O2SAT 98
[2025-04-06 10:58] VITALS: BP 118/60; PULSE 80; RESP 19; TEMP 37; O2SAT 98
== END 2025-04-06 11:01 | disposition home or self-care (01) ==
PROVIDERS: Emergency Provider Emergency Medicine; PCP Internal Medicine; Visit Provider Emergency Medicine
DX: R53.1 Weakness (principal); E11.22 Type 2 diabetes mellitus with diabetic chronic kidney disease; N18.30 Chronic kidney disease, stage 3 unspecified; E78.00 Pure hypercholesterolemia, unspecified; D64.9 Anemia, unspecified; I77.9 Disorder of arteries and arterioles, unspecified; Z79.899 Other long term (current) drug therapy; R42 Dizziness and giddiness
CPT/HCPCS: 70496; 70498; 80048; 85025; 85610; 85730; 93005; 99284; Q9967; A4216

== ENCOUNTER 2025-05-26 07:20 | Emergency (ER) | payer MEDICARE, SELFPAY ==
[2025-05-26 07:22] VITALS: BP 136/63; PULSE 79; RESP 18; TEMP 36.4; O2SAT 97; BMI 40.5
--- NOTE | 2025-05-26 07:43 | CT_ITS ---
PROCEDURE: ABDOMEN/PELVIS W IV CONT ONLY 05/26/2025 REASON FOR EXAM: LLQ PAIN, DIVERTICULITIS? TECHNIQUE: Procedure Code: [id number] Modality: CT Procedure: ABDOMEN/PELVIS W IV CONT ONLY Coronal and Sagittal reconstruction series were provided. CONTRAST: Isovue 370 VOLUME: 92 mL One or more dose reduction techniques were used (e.g., Automated exposure control, adjustment of the mA and/or kV according to patient size, use of iterative reconstruction technique. RADIATION DOSE SUMMARY: CTDlvol: 55 mGy DLP: 1865 mGycm COMPARISON: None FINDINGS: Lung bases: Clear Liver: Near the margin of segment 4 and segment 8 there is a circumscribed mass that is hypodense relative to background liver on the portal venous phase measuring 3.3 x 4.0 x 3.9 cm. Smaller lesions are seen in the posterior segment right hepatic lobe on image 40, and another in the anterior segment anteriorly on image 35. Subtle hypodensity near the dome of the liver in segment 8 and segment 2 May be cysts or solid lesions. Gallbladder: Normal Spleen: Normal Pancreas: Normal Adrenals: Normal Kidneys: Multiple cortical cysts are seen. These are too small to characterize, but statistically benign. 5 mm calculus right mid to upper pole. No collecting system dilation. Bladder: Normal Reproductive Organs: Normal Bowel: Stomach is normal. Small bowel is normal. Modest to large amount of formed stool throughout the colon terminates near the rectosigmoid. Non-specific free fluid and stranding is seen near the sigmoid colon. No definite wall thickening or diverticula identified. No pneumatosis or pneumoperitoneum. Appendix: Normal Lymph nodes: None appear enlarged Vasculature: Moderate atherosclerotic plaque without aneurysm. Peritoneum / Retroperitoneum: No free air, free fluid or mass. Bones: Severe lower lumbar facet hypertrophy. Ankylosis of the SI joints. CT/Abdomen/Pelvis W IV Cont ONLY IMPRESSION: 1. Vkejiybr-au-gqjxx amount of formed stool throughout the colon. There is a s mall amount of fluid around the sigmoid colon but no wall thickening, diverticula, pneumatosis or pneumoperitoneum is seen. Sour ce of the fluid is not known. A mild colitis/constipation is a consideration. 2. Masses are seen within the liver that do not meet criteria for simple cysts . Largest is in the central portion of the liver measuring up to 4 cm. Malignancy/metastatic disease should be considered. 3. Numerous bilateral renal cysts are too small to characterize. These are st atistically benign. If desired, MRI with contrast could be performed on a nonemergent basis to fully characterize. Reading Location: [id number]
--- NOTE | 2025-05-26 07:44 | ED.VIS.GI ---
HPI HPI - GI History of Present Illness Chief Complaint: Abd Pain Narrative Narrative: Patient is a 74-year-old male presenting to the emergency department for abdominal pain and diarrhea. 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 States that a few days after starting this he developed nonbloody diarrhea. He stopped taking the allopurinol a few days ago and the diarrhea stopped. Reports that he called his fire marshal ref[employer] who recommended that he take a half dose of allopurinol. He took this yesterday and then developed diarrhea again. Reports about 6-7 episodes of nonbloody, watery diarrhea. Reports lower abdominal pain as well. States this is constant and not associated with his bowel movements. He endorses dysuria and difficulty urinating this morning. Denies any hematuria. Reports some nausea when he had the abdominal pain but this has improved. Denies any scrotal or penile pain. Denies any scrotal swelling. Denies any penile discharge. Denies any history of kidney stones. Denies any flank pain. Denies fever, chills, vomiting. Denies any recent antibiotic use, travel or hospitalizations. He lives at home. [facility] Medical History Hx of gout High cholesterol HTN (hypertension) Diabetes Home Medications ?Medication ?Instructions ?Recorded ?Last Taken ?Type atorvastatin 40 mg tablet 40 mg PO DAILY cholesterol 07/12/20 04/05/25 History lisinopril 20 2 ea PO DAILY htn 07/12/20 04/06/25 History mg-hydrochlorothiazide 12.5 mg tablet amitriptyline 50 mg tablet 50 mg PO QHS mood 04/06/25 04/05/25 History berberine chloride 500 mg capsule 1,000 mg PO DAILY dm 04/06/25 04/06/25 History cranberry 500 mg capsule 500 mg PO DAILY supplemeent 04/06/25 04/05/25 History diltiazem HCl 360 mg 360 mg PO DAILY bp 04/06/25 04/06/25 History capsule,extended release 24 hr doxazosin 8 mg tablet 8 mg PO DAILY htn 04/06/25 04/05/25 History potassium chloride 10 mEq 10 meq PO DAILY supplement 04/06/25 04/05/25 History tablet,extended release(part/cryst) sour felton extract 1,000 mg 1,000 mg PO BID 04/06/25 04/06/25 History capsule (Tart Felton Extract) vitamin E 268 mg (400 unit) capsule 268 mg PO DAILY supplement 04/06/25 04/05/25 History Allergy/AdvReac Type Severity Reaction Status Date / Time Anesthetics - Amide Type - Allergy Rash Verified 05/26/25 08:01 Select A Penicillins (PCN) Allergy Hives Verified 05/26/25 08:01 Surgical History H/O left knee surgery Social History Smoking Status: Never smoker ROS ROS ED ROS Narrative See HPI EXAM Physical Exam Narrative Exam Narrative: Vital signs: Reviewed General: Alert and oriented x 3. No acute distress HEENT: Head is normocephalic and atraumatic, sinuses nontender, pupils equal round and reactive. Nares are patent. Oropharynx and throat exams normal. Neck: Supple without lymphadenopathy nontender Cardiovascular: Regular rate and rhythm, no murmurs. No rubs or gallops. Normal S1 and S2 Respiratory: Clear to auscultation bilaterally. No wheezes, rales, rhonchi Abdominal: Soft and tender to palpation in the left lower quadrant and suprapubic. Normal bowel sounds. No guarding or rebound. No CVA tenderness. Extremities: No tenderness. No bruising. Normal range of motion. Normal sensation. Skin: No rash or redness. Neurological: Cranial nerves II through XII are grossly intact. Normal strength and sensation. Normal cerebellar function The rest of the physical exam is unremarkable Const Vital Signs: 05/26/25 07:22 05/26/25 09:21 05/26/25 11:42 Temperature 97.6 F L 98.8 F Temperature Source Temporal Oral Pulse Rate 79 81 88 Respiratory Rate 18 14 20 H Blood Pressure 136/63 H 139/71 H 117/76 Blood Pressure Mean 87 93 89 Pulse Ox 97 98 98 Oxygen Delivery Method Room Air Room Air 05/26/25 11:44 Temperature 98.8 F Temperature Source Pulse Rate 88 Respiratory Rate 20 H Blood Pressure 117/76 Blood Pressure Mean 89 Pulse Ox 98 Oxygen Delivery Method MDM MDM MDM Narrative Medical decision making narrative: Patient is a 74-year-old male presenting to emergency department for abdominal pain and diarrhea. Patient was seen and examined. Vitals are stable. Patient resting bed comfortably no acute distress. Differential includes but is not limited to: Diverticulitis, UTI, nephrolithiasis, pyelonephritis, gastroenteritis, colitis Patient offered analgesia and antiemetic, states he is not in any pain and does not have any nausea at this time. Labs and CT imaging ordered. CBC with no leukocytosis and chronic anemia of 9.7. CMP with mildly elevated creatinine at 1.44, actually improved from his baseline. Mild hyperglycemia at 116. Lipase within normal limits. Urinalysis with small amount of leukocyte esterase however no other evidence of UTI. CT shows a moderate to large amount of formed stool throughout the colon with a small amount of fluid around the sigmoid colon but no wall thickening, diverticuli, pneumatosis or pneumoperitoneum is seen. Source of the fluid is not known. On mild colitis constipation is a consideration. Also shows masses in the liver that do not meet criteria for simple cyst, consider malignancy versus metastatic disease. Patient does not have a leukocytosis, I do not think that the fluids seen around the sigmoid colon is infectious at this time. I updated the patient and family member at bedside on the findings. I gave him very strict return precautions if he develops any worsening abdominal pain, nausea, vomiting, fevers as this could be colitis. I did notify them of the liver masses seen as well and recommended follow-up with primary care doctor for MRI for further workup for these. Patient was educated on stopping the Imodium and actually starting Metamucil or MiraLAX to help with the constipation. I think the diarrhea is leakage around the formed stool. Patient discharged from the Emergency Department. I do not feel that the patient's evaluation reveals any acute reason for admission at this time. I instructed them to either follow-up with their primary care physician or promptly return to the Emergency Department for reevaluation should symptoms worsen or new symptoms develop. I explained what symptoms would indicate the need to return to the emergency department. Shared decision making was used. The patient voiced understanding of the treatment plan and is agreeable with it. Clinical impression Abdominal pain Diarrhea History & Record Review Discussion w/independent historian: Patient and Family Lab Data Attestation: I reviewed the patient's lab results. Labs: Laboratory Results - last 24 hr 05/26/25 07:50 WBC 8.2 RBC 3.85 L Hgb 9.7 L Hct 31.0 L MCV 80.5 MCH 25.2 L MCHC 31.3 L RDW Std Deviation 46.6 H RDW Coeff of Viktoria 16.0 H Plt Count 244 MPV 9.3 Immature Gran % (Auto) 0.500 Neut % (Auto) 83.4 H Lymph % (Auto) 9.1 L [place] % (Auto) 6.2 Eos % (Auto) 0.6 Baso % (Auto) 0.2 Absolute Neuts (auto) 6.8 Absolute Lymphs (auto) 0.75 L Nucleated RBC % 0 Sodium 139 Potassium 3.5 Chloride 101 Carbon Dioxide 24.6 Anion Gap 13 BUN 16 Creatinine 1.44 H Estim Creat Clear Calc 54.98 Est GFR (MDRD) Non-Af 52 L BUN/Creatinine Ratio 10.8 Glucose 116 H Calcium 9.4 Total Bilirubin 0.63 AST 19 ALT 10 Alkaline Phosphatase 83 Total Protein 7.0 Albumin 4.2 Globulin 2.8 Albumin/Globulin Ratio 1.5 Lipase 6 L Urine Color Yellow Urine Clarity Clear Urine pH 8.0 Ur Specific [place] 1.010 Urine Protein 15 H Urine Glucose (UA) Normal Urine Ketones Negative Urine Occult Blood Negative Urine Nitrite Negative Urine Bilirubin Negative Urine Urobilinogen Normal Ur Leukocyte Esterase 25 H Urine RBC 0 SEEN Urine WBC 0 SEEN Ur Squamous Epith Cells 0 SEEN Urine Bacteria 0 SEEN Urine Mucus 0 SEEN Radiography Diagnostic Testing: Clinical Impression(s) from Imaging Studies Abdomen/Pelvis CT 05/26/25 07:43 IMPRESSION: 1. Rsgbisnw-am-jjkuk amount of formed stool throughout the colon. There is a small amount of fluid around the sigmoid colon but no wall thickening, diverticula, pneumatosis or pneumoperitoneum is seen. Source of the fluid is not known. A mild colitis/constipation is a consideration. 2. Masses are seen within the liver that do not meet criteria for simple cysts. Largest is in the central portion of the liver measuring up to 4 cm. Malignancy/metastatic disease should be considered. 3. Numerous bilateral renal cysts are too small to characterize. These are statistically benign. If desired, MRI with contrast could be performed on a nonemergent basis to fully characterize. Reading Location: [id number] Discharge Plan Triage Chief Complaint: Abd Pain ED Provider: Chetna Gonsalez Dx/Rx/DC Orders Clinical Impression: Abdominal pain Instructions: Abdominal Pain Prescriptions: No Action atorvastatin 40 MG tablet 40 mg PO DAILY Patient Comments: TAKE 1 TABLET BY MOUTH ONCE DAILY FOR CHOLESTEROL lisinopril-hydrochlorothiazide 1 EACH tablet 2 ea PO DAILY diltiazem HCl 360 mg capsule,extended release 24hr 360 mg PO DAILY amitriptyline 50 mg tablet 50 mg PO QHS doxazosin 8 mg tablet 8 mg PO DAILY potassium chloride 10 mEq tablet,ER particles/crystals 10 meq PO DAILY vitamin E 268 mg (400 unit) capsule 268 mg PO DAILY Rx Instructions: pt states unsure what strength Tart Felton Extract 1,000 mg capsule 1,000 mg PO BID Rx Instructions: pt states unsure of strength. takes one cap am and liquid pm berberine chloride 500 mg capsule 1,000 mg PO DAILY cranberry 500 mg capsule 500 mg PO DAILY Rx Instructions: administer with a meal Primary Care Provider: Reese Aburto Referrals: Reese Aburto MD [Primary Care Provider] - 2 Days Activity Restrictions/Additional Instructions: Please begin taking Metamucil daily to increase your fiber intake. Stop taking the immodium. Please follow up with your primary care doctor for possible outpatient MRI for your liver lesions seen. Read of this is below. You need to return to the ED immediately if you have increased abdominal pain, nausea, vomiting or fevers. Your evaluation in the Emergency Department did not reveal any acute reason for admission. However, I want to emphasize that you may be early in the course of a disease process or illness even if it is not present. For this reason you should follow-up within 24 hours for reevaluation with either your primary care physician or if necessary back here in the Emergency Department. You should return to the Emergency Department immediately if your symptoms worsen or new symptoms develop. CT liver findings: Masses are seen within the liver that do not meet criteria for simple cysts. Largest is in the central portion of the liver measuring up to 4 cm. Malignancy/metastatic disease should be considered. Print Language: Brazilian Disposition Disposition: Home, Self Care Discharge Date/Time: 05/26/25 11:47
[2025-05-26 08:00] LABS: Hematocrit 31.0 % (40-54); Hemoglobin 9.7 g/dL (13.0-16.5); Immature Granulocytes Count 0.040 X10^3/uL (0.0-0.0); Mean Corp Hgb Conc 31.3 g/dL (32-36); Mean Corpuscular Volume 80.5 fL (80-94); Mean Platelet Vol. 9.3 fl (6.2-12.0); NRBC Flagged by Analyzer 0 % (0-5); Platelet Count 244 K/mm3 (150-450); RBC Distribution Width CV 16.0 % (11.6-14.6); RBC Distribution Width SD 46.6 fl (35.1-43.9); Red Blood Count 3.85 M/mm3 (4.6-6.2); White Blood Count 8.2 K/mm3 (4.4-11.0)
[2025-05-26 08:02] LABS: Mucous, Urine 0 SEEN /hpf (<or=2+); Red Blood Cells-Urine 0 SEEN /hpf (0-5); Squamous Epithelial Cells - UA 0 SEEN /hpf (0-5)
[2025-05-26 08:03] LABS: Color, Urine Yellow (Yellow); Glucose, Dipstick Normal (Normal); Ketone-Dipstick Negative (Negative); Leukocyte Esterase-Dipstick 25 /ul (Negative); Nitrite-Dipstick Negative (Negative); Occult Blood-Urine Negative /ul (Negative); Protein-Dipstick 15 mg/dl (Negative); Specific Gravity, Urine 1.010 (1.002-1.030); Urine Bilirubin Dipstick Negative (Negative)
[2025-05-26 08:44] LABS: AST(SGOT) 19 U/L (<=37); Alanine Aminotransfer ALT/SGPT 10 U/L (<=46); Albumin, Serum 4.2 g/dL (3.4-4.8); Alkaline Phosphatase 83 U/L (40-129); Anion Gap 13 (5-15); BUN 16 mg/dL (4-19); BUN/Creat Ratio 10.8 RATIO (10-20); Calcium,Total 9.4 mg/dL (7.6-11.0); Carbon Dioxide 24.6 mmol/L (21.0-32.0); Chloride 101 mmol/L (98-108); Estimated Creatinine Clearance 54.98 ml/min (50-250); Globulin 2.8 g/dL (2.2-4.2); Glucose 116 mg/dL (70-99); Lipase 6 U/L (13-75); Potassium 3.5 mmol/L (3.3-5.1)
[2025-05-26 09:21] VITALS: BP 139/71; PULSE 81; RESP 14; O2SAT 98
[2025-05-26 11:42] VITALS: BP 117/76; PULSE 88; RESP 20; TEMP 37.1; O2SAT 98
[2025-05-26 11:44] VITALS: BP 117/76; PULSE 88; RESP 20; TEMP 37.1; O2SAT 98
== END 2025-05-26 11:47 | disposition home or self-care (01) ==
PROVIDERS: Emergency Provider Student in an Organized Health Care Education/Training Program; PCP Internal Medicine; Visit Provider Student in an Organized Health Care Education/Training Program
DX: R10.30 Lower abdominal pain, unspecified (principal); E11.9 Type 2 diabetes mellitus without complications; E78.00 Pure hypercholesterolemia, unspecified; I10 Essential (primary) hypertension; R19.7 Diarrhea, unspecified; Z79.899 Other long term (current) drug therapy; M10.9 Gout, unspecified
CPT/HCPCS: 74177; 80053; 81001; 83690; 85025; 99284; Q9967; A4216

== ENCOUNTER 2025-05-26 20:12 | Emergency (ER) | payer MEDICARE, SELFPAY ==
[2025-05-26 20:13] VITALS: BP 130/77; PULSE 98; RESP 14; TEMP 37.6; O2SAT 97; BMI 41.1
[2025-05-26 20:57] LABS: Hematocrit 31.5 % (40-54); Hemoglobin 10.0 g/dL (13.0-16.5); Immature Granulocytes Count 0.030 X10^3/uL (0.0-0.0); Mean Corp Hgb Conc 31.7 g/dL (32-36); Mean Corpuscular Volume 80.2 fL (80-94); Mean Platelet Vol. 9.5 fl (6.2-12.0); NRBC Flagged by Analyzer 0 % (0-5); Platelet Count 232 K/mm3 (150-450); RBC Distribution Width CV 16.0 % (11.6-14.6); RBC Distribution Width SD 46.5 fl (35.1-43.9); Red Blood Count 3.93 M/mm3 (4.6-6.2); White Blood Count 9.7 K/mm3 (4.4-11.0)
[2025-05-26 21:30] VITALS: BP 159/63; PULSE 87; RESP 18; O2SAT 97
[2025-05-26 22:12] LABS: AST(SGOT) 15 U/L (<=37); Alanine Aminotransfer ALT/SGPT 12 U/L (<=46); Albumin, Serum 4.0 g/dL (3.4-4.8); Alkaline Phosphatase 74 U/L (40-129); Anion Gap 13 (5-15); BUN 16 mg/dL (4-19); BUN/Creat Ratio 10.3 RATIO (10-20); Calcium,Total 9.4 mg/dL (7.6-11.0); Carbon Dioxide 24.0 mmol/L (21.0-32.0); Chloride 98 mmol/L (98-108); Estimated Creatinine Clearance 51.54 ml/min (50-250); Globulin 2.8 g/dL (2.2-4.2); Glucose 115 mg/dL (70-99); Lipase 13 U/L (13-75); Potassium 3.5 mmol/L (3.3-5.1)
--- NOTE | 2025-05-26 22:16 | RAD_ITS ---
PROCEDURE: ACUTE ABDOMEN INC CHEST 05/26/2025 REASON FOR EXAM: ABD PAIN TECHNIQUE: Procedure Code: RADABDCA Modality: DX Procedure: ACUTE ABDOMEN INC CHEST COMPARISON: Abdominal CT same day 05/26/2025. FINDINGS: Lungs/Pleura: Clear. No pneumothorax or sizable pleural effusion. Heart/Mediastinum: Within normal limits. No vascular congestion. Bones/Soft tissues: Multilevel degenerative changes of the spine. Abdomen: Nonspecific, grossly nonobstructive bowel gas pattern. No discernible free air. Redemonstrated large colonic stool burden throughout the colon suggesting constipation. Excreted IV contrast opacifies the urinary bladder. Subcentimeter right renal stones not well appreciated. RAD/Acute Abdomen Inc Chest IMPRESSION: 1. No acute cardiopulmonary disease. 2. Nonspecific, grossly nonobstructive bowel gas pattern. 3. Large colonic stool burden suggesting constipation. 4. Subcentimeter right renal stones are not well appreciated, as seen on recent CT. Reading Location: [id number]
[2025-05-26] MEDS: 0.9% Normal Saline (1000mL) 1,000 ML 999 ML IV (22:28)
[2025-05-26] MEDS: DiphenhydrAMINE 50 MG/ML Syringe 12.5 MG IV (22:29)
[2025-05-26 23:00] VITALS: BP 132/56; PULSE 90; RESP 18; O2SAT 97
[2025-05-26 23:00] LABS: Magnesium 1.8 mg/dL (1.5-2.2)
[2025-05-27 00:20] VITALS: BP 159/66; PULSE 95; RESP 18; TEMP 36.6; O2SAT 97
--- NOTE | 2025-05-27 00:22 | EDS_ITS ---
HPI History of Present Illness Chief Complaint: Abd Pain Informant: patient and family Narrative Narrative: Patient is a 74-year-old male with past medical history of hypertension hyperlipidemia and diabetes. He was seen earlier this morning secondary to generalized abdominal discomfort associated with nausea and vomiting. At that time basic labs were obtained as well as a CT scan of the abdomen and pelvis. Labs revealed no clinically significant findings and CT scan revealed no sign of obstruction but did show constipation. Patient states he was discharged and told to take MiraLAX but not given any medication to help with symptoms. He states that his nausea has persisted throughout the day and he had further bouts of vomiting as well as recurrent abdominal discomfort and with this presents for reevaluation [facility] Medical History Hx of gout High cholesterol HTN (hypertension) Diabetes Home Medications ?Medication ?Instructions ?Recorded ?Last Taken ?Type atorvastatin 40 mg tablet 40 mg PO DAILY cholesterol 1 04/05/25 History lisinopril 20 2 ea PO DAILY htn 07/12/20 0 04/06/25 History mg-hydrochlorothiazide 12.5 mg tablet amitriptyline 50 mg tablet 50 mg PO QHS mood 04/06/25 04/05/25 History berberine chloride 500 mg capsule 1,000 mg PO DAILY dm 04/06/25 04/06/25 History cranberry 500 mg capsule 500 mg PO DAILY supplemeent 04/06/25 04/05/25 History diltiazem HCl 360 mg 360 mg PO DAILY bp 04/06/25 04/06/25 History capsule,extended release 24 hr doxazosin 8 mg tablet 8 mg PO DAILY htn 04/06/25 0 04/05/25 History potassium chloride 10 mEq 10 meq PO DAILY supplement 0 04/06/25 04/05/25 History tablet,extended release(part/cryst) sour felton extract 1,000 mg 1,000 mg PO BID 04/06/25 04/06/25 History capsule (Tart Felton Extract) allopurinol 100 mg tablet 100 mg PO DAILY 05/26/25 Unk nown History cyclobenzaprine 10 mg tablet 10 mg PO BID PRN 05/26/25 Unknown History metoclopramide HCl 10 mg tablet 10 mg PO TID PRN nause a and 05/27/25 Unknown Rx (Reglan) vomiting #21 tabs Allergy/AdvReac Type Severity Reaction Status Date / Time Anesthetics - Amide Type - Allergy Rash Verified 05/26/25 20:13 Select A Penicillins (PCN) Allergy Hives Verified 05/26/25 20:13 Surgical History H/O left knee surgery Social History Smoking Status: Never smoker ROS ROS ED Constitutional Constitutional ED: Denies chills or fever(s) Eyes Eyes: Denies change in vision ENT ENT ED: Denies sore throat Cardiovascular Cardiovascular: Denies chest pain Respiratory/Chest Respiratory/Chest: Denies cough or dyspnea Gastrointestinal Gastrointestinal: Reports abdominal pain, constipation, nausea and vomiting; Denies diarrhea Genitourinary Genitourinary ED: Denies dysuria Musculoskeletal Musculoskeletal: Denies back pain or myalgias Integumentary Denies rash Neurologic Neurologic: Denies headache(s) Hematologic/Lymphatic Hematologic/Lymphatic: Denies easy bleeding or easy bruising EXAM Physical Exam Const Vital Signs: 05/26/25 20:13 05/26/25 21:30 05/26/25 23:00 Temperature 99.7 F H Temperature Source Oral Pulse Rate 98 87 90 Respiratory Rate 14 18 18 Blood Pressure 130/77 H 159/63 H 132/56 H Blood Pressure Mean 94 95 81 Pulse Ox 97 97 97 Oxygen Delivery Method Room Air Room Air Room Air 05/27/25 00:20 Temperature 98 F Temperature Source Pulse Rate 95 Respiratory Rate 18 Blood Pressure 159/66 H Blood Pressure Mean 97 Pulse Ox 97 Oxygen Delivery Method Positive well nourished, well developed and obese General Appearance ED: well developed; Negative for pallor Nutritional Appearance: obese HEENT Reports dry mucous membranes HEENT Narrative: No tongue or lip swelling no oral lesions no airway edema or compromise; no secondary findings in the posterior pharynx to suggest infection Mucous membranes are dry and tacky Mouth ED: Yes dry mucous membranes Mouth: dry mucous membranes Eyes PERRL and EOMs intact bilaterally General Eye ED: Negative for scleral icterus Neck supple Resp normal respiratory effort and clear to auscultation bilaterally Cardio regular rate and regular rhythm Rate: other Other Details: Heart is regular rate and rhythm Radial and carotid pulses are equal and symmetric GI no masses GI Narrative: Abdomen is soft but slightly distended with hypoactive bowel sounds. There is mild diffuse pain with palpation but no voluntary guarding or rigidity or pulsatile mass. No peritoneal signs. No increased tympany noted. No fluid wa ve. Auscultation: hypoactive bowel sounds Palpation: soft Back/Spine no CVA tenderness Extremity Extremity Narrative: Trace to +1 pitting edema to the bilateral lower extremities that is equal and symmetric and chronic per patient Neuro oriented x3, CN's II-XII intact bilaterally and no sensory deficits noted Sensorium / Orientation: alert Motor Exam: strength 5/5 throughout Psych mental status grossly normal Skin no rashes or lesions noted and No skin turgor normal Skin Narrative: Skin turgor is increased General Skin Exam: Negative for jaundice or pallor MDM MDM MDM Narrative Medical decision making narrative: Patient arrived to the ER overall stable vitals. He had been seen at roughly 10 hours ago and at that time had basic laboratory studies a urine sample and a CT scan of his abdomen and pelvis with only reported finding being changes consistent with constipation. As he is a diabetic there is concern that he may have developed gastroparesis. His physical exam is also concerning for potential ileus. In order to ensure that since returning home he has not developed acute kidney injury clinically significant electrolyte abnormality or acute pancreatitis I did elect to perform repeat laboratory studies. As he had a CT scan roughly 10 hours ago I felt no need for a repeat CT scan but did elect to perform an acute abdominal series to document constipation and not developing small bowel obstruction or perforation. Labs showed no leukocytosis going against a secondary infection. Kidney function was slightly elevated with creatinine of 1.55 but near patient's baseline going against acute kidney injury. Lipase is normal going against pancreatitis and liver enzymes are normal going against a biliary issue. The x-ray revealed constipation without signs of obstruction. After receiving IV fluids and Reglan the patient reported feeling better and he was able to drink kayleen tricia and eat a cookie without further bouts of nausea or vomiting. Therefore at this time as repeat workup reveals no clinically significant findings and repeat x-ray does not show signs of obstruction or perforation and has had resolution of symptoms with treatment I do not feel there is need for admission. Patient will be given magnesium citrate to help with his significant constipation and then advised to continue MiraLAX to prevent reoccurrence. He will also be prescribed Reglan as this has helped his symptoms in the emergency department to help control any potential bouts of nausea and vomiting or gastroparesis changes. This plan of care was discussed with patient and family and they are agreeable to it especially as he has had improvement/resolution of symptoms at this second evaluation History & Record Review Discussion w/independent historian: Patient and Family Lab Data Attestation: I reviewed the patient's lab results. Labs: Laboratory Results - last 24 hr 05/26/25 20:45 WBC 9.7 RBC 3.93 L Hgb 10.0 L Hct 31.5 L MCV 80.2 MCH 25.4 L MCHC 31.7 L RDW Std Deviation 46.5 H RDW Coeff of Viktoria 16.0 H Plt Count 232 MPV 9.5 Immature Gran % (Auto) 0.300 Neut % (Auto) 81.8 H Lymph % (Auto) 9.6 L Wagoner % (Auto) 7.5 Eos % (Auto) 0.6 Baso % (Auto) 0.2 Absolute Neuts (auto) 7.9 H Absolute Lymphs (auto) 0.93 Nucleated RBC % 0 Sodium 135 Potassium 3.5 Chloride 98 Carbon Dioxide 24.0 Anion Gap 13 BUN 16 Creatinine 1.55 H Estim Creat Clear Calc 51.54 Est GFR (MDRD) Non-Af 47 L BUN/Creatinine Ratio 10.3 Glucose 115 H Calcium 9.4 Magnesium 1.8 Total Bilirubin 0.80 AST 15 ALT 12 Alkaline Phosphatase 74 Total Protein 6.9 Albumin 4.0 Globulin 2.8 Albumin/Globulin Ratio 1.4 Lipase 13 Radiography Diagnostic Testing: Clinical Impression(s) from Imaging Studies Acute Abdomen Series 05/26/25 22:16 IMPRESSION: 1. No acute cardiopulmonary disease. 2. Nonspecific, grossly nonobstructive bowel gas pattern. 3. Large colonic stool burden suggesting constipation. 4. Subcentimeter right renal stones are not well appreciated, as seen on recent CT. Reading Location: [id number] Acute abdominal series with 1 view chest as interpreted by the emergency medicine physician reveals a nonobstructive nonspecific bowel gas pattern with large colonic stool burden consistent with constipation. Chest x-ray component reveals no acute infiltrate or pneumothorax Discharge Plan Triage Chief Complaint: Abd Pain ED Provider: Yosi Ferraro Dx/Rx/DC Orders Clinical Impression: Constipation, Nausea and vomiting, Hypertension, High cholesterol, Type 2 diabetes mellitus Instructions: Ileus, ED Constipation (Adult) Prescriptions: New metoclopramide HCl [Reglan] 10 mg tablet 10 mg PO TID PRN (Reason: nausea and vomiting) Qty: 21 0RF No Action atorvastatin 40 MG tablet 40 mg PO DAILY Patient Comments: TAKE 1 TABLET BY MOUTH ONCE DAILY FOR CHOLESTEROL lisinopril-hydrochlorothiazide 1 EACH tablet 2 ea PO DAILY diltiazem HCl 360 mg capsule,extended release 24hr 360 mg PO DAILY amitriptyline 50 mg tablet 50 mg PO QHS doxazosin 8 mg tablet 8 mg PO DAILY potassium chloride 10 mEq tablet,ER particles/crystals 10 meq PO DAILY Tart Felton Extract 1,000 mg capsule 1,000 mg PO BID Rx Instructions: pt states unsure of strength. takes one cap am and liquid pm berberine chloride 500 mg capsule 1,000 mg PO DAILY cranberry 500 mg capsule 500 mg PO DAILY Rx Instructions: administer with a meal cyclobenzaprine 10 mg tablet 10 mg PO BID PRN allopurinol 100 mg tablet 100 mg PO DAILY Primary Care Provider: Reese Aburto Referrals: Reese Aburto MD [Primary Care Provider] - Activity Restrictions/Additional Instructions: Please drink half the bottle of magnesium citrate in the morning and if you do not have a bowel movement within 4 hours of drinking half a bottle then finish the bottle. Once you have multiple bowel movements after drinking the magnesium citrate on begin using 1 capful of MiraLAX daily to prevent any recurrent constipation. Take the Reglan as directed to help with nausea and vomiting sensation and keep yourself well-hydrated. Return to the ER should you have any further concerns Print Language: Swiss Disposition Disposition: Home, Self Care Discharge Date/Time: 05/27/25 00:40
[2025-05-27] MEDS: Magnesium Citrate 300 ML PO (00:39)
== END 2025-05-27 00:40 | disposition home or self-care (01) ==
PROVIDERS: Emergency Provider Emergency Medicine; PCP Internal Medicine; Visit Provider Emergency Medicine
DX: E11.9 Type 2 diabetes mellitus without complications (principal); R11.2 Nausea with vomiting, unspecified; I10 Essential (primary) hypertension; E78.00 Pure hypercholesterolemia, unspecified; Z79.899 Other long term (current) drug therapy; M10.9 Gout, unspecified; K59.00 Constipation, unspecified; R10.84 Generalized abdominal pain
CPT/HCPCS: 74022; 80053; 83690; 83735; 85025; 96361; 96374; 96375; 99283; A4216